=== PATIENT | female | born 1990 | race Hispanic/Latino ===

== ENCOUNTER 2018-12-27 13:54 | Emergency (ER) | payer MEDICAID, OTHER ==
[2018-12-27] MEDS ORDERED: Acetaminophen 500 MG TAB ONE (14:27)
== END 2018-12-27 14:30 | disposition home or self-care (01) ==
LOC: ERS 13:54
DX: O99.613 Diseases of the digestive system complicating pregnancy, third trimester (principal); K02.9 Dental caries, unspecified; Z3A.28 28 weeks gestation of pregnancy
CPT/HCPCS: 99281

== ENCOUNTER 2019-03-10 05:30 | Inpatient (IN) | payer OTHER ==
[2019-03-10] MEDS ORDERED: Butorphanol Tartrate 1 MG/ML VIAL SLOW IVP PRN (06:00)
[2019-03-10] MEDS ORDERED: Lidocaine 1% (PF) 30 ML VIAL SC PRN (06:00)
[2019-03-10] MEDS ORDERED: Docusate 100 MG CAP PO PRN (06:00)
[2019-03-10] MEDS ORDERED: HYDROcodone/Acetaminophen 5/325 mg Tablet PO PRN ×2 (06:00)
[2019-03-10] MEDS ORDERED: Zolpidem Tartrate 5 MG TAB PO PRN (06:00)
[2019-03-10] MEDS ORDERED: Acetaminophen 500 MG TAB PO PRN (06:00)
[2019-03-10] MEDS ORDERED: Carboprost 250 MCG/ML AMP IM PRN (06:00)
[2019-03-10] MEDS ORDERED: Methylergonovine 0.2 MG/ML VIAL IM PRN (06:00)
[2019-03-10] MEDS ORDERED: NS w/ Oxytocin 10 units 500 ML IV SCH (06:00)
[2019-03-10] MEDS ORDERED: hydrALAZINE 20 MG/ML VIAL SLOW IVP PRN (06:00)
[2019-03-10] MEDS ORDERED: Promethazine HCl 25 MG/ML VIAL IM PRN ×2 (06:00→19:35)
[2019-03-10] MEDS ORDERED: Ibuprofen 800 MG TAB PO PRN (06:00)
[2019-03-10] MEDS ORDERED: Ondansetron PF 4 MG/2 ML Vial IVP PRN ×2 (06:00→19:35)
[2019-03-10] MEDS ORDERED: Diphenoxylate HCl/Atropine Tablet PO PRN ×2 (06:00)
[2019-03-10] MEDS ORDERED: NS / Oxytocin 40 units/1000ml 1,000 ML IV PRN (06:00)
[2019-03-10] MEDS ORDERED: Misoprostol 200 MCG TAB PR PRN (06:00)
--- NOTE | 2019-03-10 06:07 | PDOC.LDHP ---
Labor and Delivery H&P Chief complaint: scheduled induction HPI: 29 y/o G5 P 2021 at 30 and0/7 weeks presents for term induction of labor. Current gestational age (weeks): 39 Due date: 03/17/19 Grav: 5 Para: 2 Current complications: other (Obesity) Abnormal US findings: No Current medications: pre- vitamins Previous surgical history: none Social history: none - Physical Exam Vital signs reviewed and normal: yes General: NAD, resting Heart: RRR Lungs: CTAB Abdomen: gravid Extremeties: no edema FHT: category 1 - Assessment L&D Assessment: elective induction at term - Plan Plan: admit to L&D, cervical ripening
[2019-03-10 06:48] LABS: Hemoglobin 10.9 g/dL (12.0-16.0); Mean Corpuscular HGB CONC 33.6 g/dL (32.0-36.0); Mean Corpuscular Hemoglobin 26.1 pg (27.0-31.0); Mean Corpuscular Volume 77.8 fL (78.0-98.0); Platelet Count 246 thou/uL (130-400); RBC Distribution Width 12.5 % (11.5-14.5); Red Blood Cell (RBC) Count 4.18 mill/uL (4.20-5.40)
[2019-03-10 07:04] VITALS: BMI 41.1
[2019-03-10 07:27] LABS: HBSAg Index 0.19 S/CO (0-0.99); Hep B Surf Ag Non-Reactive S/CO (NonReactive)
[2019-03-10 07:31] LABS: Syphilis Antibody Nonreactive (Nonreactive); Syphilis Antibody Index 0.03 S/CO (<1.00 Non-Reactive)
[2019-03-10] MEDS: Misoprostol 100 MCG TAB VAG SCH ×4 (07:35→16:38)
[2019-03-10] MEDS ORDERED: Bupivacaine PF 0.5% 30 ML VIAL ONE (09:38)
[2019-03-10] MEDS ORDERED: Bupivacaine 0.25% HCL 30 ML VIAL ONE (09:38)
[2019-03-10] MEDS: NS w/ Oxytocin 10 units 500 ML IV SCH (10:27)
[2019-03-10] MEDS: Lactated Ringer's 1,000 ML IV SCH ×4 (10:28→19:10)
[2019-03-10] MEDS ORDERED: Benzonatate 100 MG CAP PO SCH (10:30)
[2019-03-10] MEDS ORDERED: Fentanyl 4 mcg/Bup 0.1% Cadd 100 ML ONE (18:52)
[2019-03-10] MEDS ORDERED: diphenhydrAMINE 50 MG/ML VIAL IVP PRN (19:35)
[2019-03-10] MEDS ORDERED: ePHEDrine/0.9% NaCl/PF SYRINGE 50 mg/10 ml SLOW IVP PRN (19:35)
[2019-03-10] MEDS ORDERED: Lactated Ringer's 500 ML IV PRN (19:35)
[2019-03-10] MEDS ORDERED: Acetaminophen 325 MG TAB PO PRN (19:35)
[2019-03-10] MEDS ORDERED: Naloxone HCl 0.4 mg/ml Vial IVP PRN ×2 (19:35)
[2019-03-10] MEDS ORDERED: Communication Order-Pharmacy FS SCH (19:45)
[2019-03-11] MEDS: Fentanyl 4 mcg/Bupivacaine 0.1% Cassette 100 ML EPIDURAL SCH ×3 (01:55→12:44)
[2019-03-11] MEDS ORDERED: Fentanyl 4 mcg/Bup 0.1% Cadd 0 ML ONE (07:14)
[2019-03-11] MEDS ORDERED: Lidocaine 1% (PF) 30 ML VIAL ONE (07:27)
[2019-03-11] MEDS ORDERED: NS / Oxytocin 40 units/1000ml 0 ML ONE (07:27)
[2019-03-11] MEDS ORDERED: FLU VACC QS2019-20(6MOS UP)/PF 60 MCG/0.5 ML SYRINGE IM ONE (09:00)
[2019-03-11] MEDS: Lactated Ringer's 1,000 ML IV SCH ×2 (09:30→14:20)
[2019-03-11] MEDS ORDERED: PROPOFOL 200 MG/20 ML VIAL ONE (10:33)
[2019-03-11] MEDS ORDERED: Ketorolac Tromethamine 30 MG/ML VIAL ONE ×3 (10:33→18:48)
[2019-03-11] MEDS ORDERED: Ondansetron PF 4 MG/2 ML Vial ONE ×3 (10:33→17:47)
[2019-03-11] MEDS ORDERED: Dexamethasone 20 MG/5 ML VIAL ONE (10:33)
[2019-03-11] MEDS ORDERED: ePHEDrine/0.9% NaCl/PF SYRINGE 50 mg/10 ml ONE ×3 (10:33→17:43)
[2019-03-11] MEDS ORDERED: Succinylcholine Chloride 20 MG/ML 10 ml SYRINGE FS ONE ×2 (10:33→15:46)
[2019-03-11] MEDS: Misoprostol 100 MCG TAB VAG SCH ×3 (11:29→14:26)
[2019-03-11] MEDS ORDERED: Fentanyl 4 mcg/Bup 0.1% Cadd 100 ML ONE (12:39)
[2019-03-11] MEDS: NS w/ Oxytocin 10 units 500 ML IV SCH (14:27)
[2019-03-11] MEDS ORDERED: Azithromycin 500 MG in Sodium Chloride 0.9% 250 ML 250 ML IVPB SCH (15:38)
[2019-03-11] MEDS ORDERED: Clindamycin/D5W 900 MG in Premix Bag 1 BAG IVPB SCH (15:38)
[2019-03-11] MEDS ORDERED: Bicitra 30 ML UDCUP PO SCH (15:45)
[2019-03-11] MEDS ORDERED: PROPOFOL 20 ML ONE (15:46)
[2019-03-11] MEDS ORDERED: Oxytocin 10 UNITS/ML VIAL ONE (15:46)
[2019-03-11] MEDS ORDERED: Lidocaine 1% PF 5 ML VIAL ONE (15:48)
[2019-03-11] MEDS ORDERED: Clindamycin/D5W 900 mg/50 ml Premix Bag ONE (15:52)
[2019-03-11] MEDS ORDERED: Azithromycin 500 MG VIAL ONE (15:53)
[2019-03-11] MEDS ORDERED: Fentanyl 250 MCG/5 ML VIAL ONE (17:17)
[2019-03-11] MEDS ORDERED: HYDROmorphone 2 MG/ML VIAL SLOW IVP PRN (17:23)
[2019-03-11] MEDS ORDERED: diphenhydrAMINE 50 MG/ML VIAL IVP PRN (17:23)
[2019-03-11] MEDS ORDERED: Naloxone HCl 0.4 mg/ml Vial IV PRN (17:23)
[2019-03-11] MEDS ORDERED: Meperidine HCl/PF 25 MG/ML VIAL SLOW IVP PRN (17:23)
[2019-03-11] MEDS ORDERED: Ondansetron HCl/PF 4 MG/2 ML Vial IVP PRN (17:23)
[2019-03-11] MEDS ORDERED: fentaNYL Citrate/PF 2,000 MCG in Sodium Chloride 0.9% 60 ML IV PRN (17:23)
[2019-03-11] MEDS ORDERED: Ondansetron PF 4 MG/2 ML Vial IVP PRN (17:23)
[2019-03-11] MEDS ORDERED: L&D-Morphine 4 MG/ML VIAL SLOW IVP PRN (17:23)
[2019-03-11] MEDS ORDERED: diphenhydrAMINE 50 MG/ML VIAL IM PRN (17:23)
[2019-03-11] MEDS ORDERED: Promethazine HCl 25 MG/ML VIAL IM PRN ×2 (17:23→21:06)
[2019-03-11] MEDS ORDERED: Zolpidem Tartrate 5 MG TAB PO PRN ×2 (17:23→21:06)
[2019-03-11] MEDS ORDERED: diphenhydrAMINE 25 MG CAP PO PRN ×2 (17:23→21:06)
[2019-03-11] MEDS ORDERED: Communication Order-Pharmacy FS PRN (17:30)
[2019-03-11] MEDS ORDERED: Ketorolac Tromethamine 30 MG/ML VIAL IVP SCH (17:30)
[2019-03-11] MEDS ORDERED: Dexamethasone 4 mg/ml Vial ONE (17:47)
[2019-03-11] MEDS ORDERED: Adacel (T-DAP) 0.5 ML SYRINGE IM ONE (21:06)
[2019-03-11] MEDS ORDERED: Methylergonovine 0.2 MG/ML VIAL IM PRN (21:06)
[2019-03-11] MEDS ORDERED: Lanolin Ointment 7 GM TUBE TOP PRN (21:06)
[2019-03-11] MEDS ORDERED: NS / Oxytocin 40 units/1000ml 1,000 ML IV SCH (21:06)
[2019-03-11] MEDS ORDERED: Misoprostol 200 MCG TAB PR PRN (21:06)
[2019-03-11] MEDS ORDERED: Measles/Mumps/Rubella 10 MCG/0.5 ML VIAL SC ONE (21:06)
[2019-03-11] MEDS ORDERED: Varicella virus, LIVE 0.5 ML VIAL SC ONE (21:06)
[2019-03-11] MEDS ORDERED: Bisacodyl 10 MG SUPP PR PRN (21:06)
[2019-03-11] MEDS ORDERED: hydrALAZINE 20 MG/ML VIAL SLOW IVP PRN (21:06)
--- NOTE | 2019-03-11 21:34 | OP ---
DATE OF PROCEDURE: 03/11/2019 TIME: 1706 central standard time. PREOPERATIVE DIAGNOSIS: Intrauterine at 39 weeks with a term induction of labor with failure to descend and nonreassuring heart tones. POSTOPERATIVE DIAGNOSIS: Intrauterine at 39 weeks with a term induction of labor with failure to descend and nonreassuring heart tones. PROCEDURE PERFORMED: Primary low-transverse section using Pfannenstiel skin incision. FINDINGS: Viable female weighing 3345 g or 7 pounds 6 ounces with Apgars 8 and 9. QUANTITATIVE BLOOD LOSS: 280 mL. COMPLICATIONS: None. DETAILS OF THE PROCEDURE: The patient was consented and taken back to the operating room where spinal anesthesia was found to be adequate. She was then prepped and draped in the normal sterile fashion. A timeout was performed by the entire operative team. The incision was then marked with a marking pen tested using sharp pickups. An incision was then made with a scalpel. The incision was carried through the adipose tissue down to the underlying rectus fascia using both sharp dissection as well as cautery. Once the fascia was identified, it was incised in the midline and then the fascial incision was carried through in both lateral directions using sharp as well as cautery dissection techniques. Next, the superior aspect of the rectus fascia was grasped with 2 Trina clamps, which was tented up and the rectus muscles were dissected off using blunt dissection as well as cautery dissection. Similarly, the inferior aspect of the fascial incision was grasped with 2 Trina clamps, tented up and the rectus muscles were dissected off bluntly as well as sharply. Next, the rectus muscles were in the midline and the peritoneum identified. The peritoneum was then carefully grasped with 2 hemostats and entered sharply. The peritoneal incision was extended superiorly and inferiorly and bladder blade was placed in the lower abdomen. At this point, the uterus was identified and the bladder flap was then developed using pickups with teeth as well as Metzenbaum scissors in both lateral directions. The bladder flap was then dissected downwards using the ladle car operator's finger as well as Metzenbaum scissors. The bladder blade was replaced. The lower uterine segment was then identified and entered sharply using a clean scalpel. The uterine incision was then dissected downwards until thin layer of muscle remained and this was entered bluntly using a hemostat to avoid any injury to the baby. The uterine incision was then stretched using two fingers in both lateral directions. An amniotomy was performed artificially using a hemostat and the baby was delivered using fundal pressure in a gentle fashion. Once out, the baby's mouth and nose were bulb suctioned, cord clamped and cut, and the baby was handed to waiting attendants. Next, the uterus was exteriorized, cleared of all clots and debris and the uterine incision was repaired with #1 Monocryl in a running locking fashion. A 2nd suture of the same type was used to obtain complete hemostasis at the uterine incision. The bladder flap was reapproximated using 3-0 Monocryl. Next, patient's left and right adnexa were inspected and appeared to be within normal limits. The posterior cul-de-sac was blotted dry and hemostasis assured. One more look at the uterine incision demonstrated hemostasis. Next, the uterus was replaced back within the abdomen. The peritoneum was reapproximated using 2-0 Monocryl without difficulty. The rectus muscles were then allowed to come back together and 0 chromic was used to aid in reapproximation of the muscle as necessary. The rectus fascia was then reapproximated in a running fashion using 0 Vicryl suture. The adipose tissue was then examined and appeared to be well approximated without any obvious separations. Finally, the skin was reapproximated with 3-0 Monocryl on a Kong needle without difficulty and Dermabond adhesive was applied to the skin. Once the glue was dry, the drapes were removed and the patient was transferred to an ambulatory bed where she was taken to recovery awake and in stable condition. Sponge, lap, and needle counts were correct x3. Job ID: [id number]
[2019-03-12] MEDS: Docusate Calcium (SURFAK) 240 MG CAP PO SCH ×3 (00:31→20:39)
[2019-03-12] MEDS: Ibuprofen 800 MG TAB PO SCH ×5 (00:32→20:39)
[2019-03-12] MEDS: Ferrous Sulfate 325 MG TAB PO SCH ×3 (00:32→20:40)
[2019-03-12] MEDS: Misoprostol 100 MCG TAB VAG SCH (00:33)
[2019-03-12] MEDS: Simethicone Chewable 80 MG TAB PO PRN ×3 (04:57→20:40)
[2019-03-12 06:10] LABS: Hemoglobin 6.6 g/dL (12.0-16.0); Mean Corpuscular HGB CONC 33.6 g/dL (32.0-36.0); Mean Corpuscular Hemoglobin 26.4 pg (27.0-31.0); Mean Corpuscular Volume 78.4 fL (78.0-98.0); Platelet Count 198 thou/uL (130-400); RBC Distribution Width 12.5 % (11.5-14.5); Red Blood Cell (RBC) Count 2.48 mill/uL (4.20-5.40); White Blood Cell (WBC) Count 16.7 thou/uL (4.8-10.8)
[2019-03-12] MEDS: Prenatal Vitamin 1 TAB PO SCH (08:17)
[2019-03-12] MEDS: HYDROcodone/Acetaminophen 5/325 mg Tablet PO PRN ×3 (09:39→17:25)
[2019-03-12 15:32] LABS: Hemoglobin 6.2 g/dL (12.0-16.0)
[2019-03-13] MEDS: HYDROcodone/Acetaminophen 5/325 mg Tablet PO PRN ×5 (02:33→21:03)
[2019-03-13] MEDS: Ibuprofen 800 MG TAB PO SCH ×3 (05:03→21:03)
[2019-03-13 06:44] LABS: Hemoglobin 5.4 g/dL (12.0-16.0)
[2019-03-13] MEDS: Ferrous Sulfate 325 MG TAB PO SCH ×2 (08:44→21:03)
[2019-03-13] MEDS: Prenatal Vitamin 1 TAB PO SCH (08:44)
[2019-03-13] MEDS: Docusate Calcium (SURFAK) 240 MG CAP PO SCH ×2 (08:44→21:03)
[2019-03-13] MEDS ORDERED: Sodium Chloride 0.9% 10 ML ONE (08:57)
[2019-03-13] MEDS: Simethicone Chewable 80 MG TAB PO PRN ×3 (09:34→21:03)
--- NOTE | 2019-03-14 00:11 | PDOC.PP ---
Post Progress Note Post Day #: 2 PO intake tolerated: yes Flatus: yes Ambulation: yes Vital Signs (12 hours) Temp Pulse Pulse Resp BP BP 03/13/19 17:20 98.5 F 77 20 100/56 L 03/13/19 14:00 98.3 F 73 20 102/54 L 03/13/19 12:35 98.6 F 74 20 94/55 L 03/13/19 11:50 97.6 F 73 20 101/51 L Weight Weight 218 lb - Physical Examination General: NAD Cardiovascular: no m/r/g, RRR Respiratory: clear to auscultation bilaterally, non-labored breathing Abdominal: + bowel sounds, lochia, no distention Extremities: negative homans (B) Skin: CS incision dry & intact, no rash Neurological: no gross focal deficits Psychiatric: A&Ox3, normal affect (Pt is now s/p 2 units of pRBC per Dr. Raza. She is set to have a repeat CBC in the am (sooner if vital signs or symptoms suggest further severe anemia).) Result Diagrams: 03/13/19 06:09 Additional Labs: Post Labs Blood Type AB POSITIVE 03/10/19 07:18 Hep Bs Antigen Non-Reactive S/CO (NonReactive) 03/10/19 06:34
[2019-03-14] MEDS: HYDROcodone/Acetaminophen 5/325 mg Tablet PO PRN ×3 (02:12→16:57)
[2019-03-14 04:11] LABS: Hemoglobin 7.2 g/dL (12.0-16.0)
[2019-03-14] MEDS: Ibuprofen 800 MG TAB PO SCH ×3 (05:08→20:27)
[2019-03-14] MEDS: Docusate Calcium (SURFAK) 240 MG CAP PO SCH ×2 (08:47→20:28)
[2019-03-14] MEDS: Prenatal Vitamin 1 TAB PO SCH (08:47)
[2019-03-14] MEDS: Ferrous Sulfate 325 MG TAB PO SCH ×2 (08:47→20:28)
[2019-03-14] MEDS: Simethicone Chewable 80 MG TAB PO PRN ×2 (10:34→14:56)
[2019-03-15] MEDS: Ibuprofen 800 MG TAB PO SCH ×2 (05:39→14:10)
[2019-03-15] MEDS: Prenatal Vitamin 1 TAB PO SCH (10:10)
[2019-03-15] MEDS: Ferrous Sulfate 325 MG TAB PO SCH (10:10)
[2019-03-15] MEDS: HYDROcodone/Acetaminophen 5/325 mg Tablet PO PRN (10:11)
[2019-03-15] MEDS: Docusate Calcium (SURFAK) 240 MG CAP PO SCH (10:11)
[2019-03-15 12:07] VITALS: BP 113/55; TEMP 98.3
[2019-03-15] MEDS ORDERED: FLU VACC QS2019-20(6MOS UP)/PF 60 MCG/0.5 ML SYRINGE IM ONE (12:52)
--- NOTE | 2019-03-16 04:11 | PQF ---
Michael Nelson DAVID MD [id number] CLINICAL DOCUMENTATION CLARIFICATION FORM: POST DISCHARGE Addendum to original discharge summary date: ____ Late entry note date: __ DATE:03/16/19 ATTN: Dr Oksana De Santiago Please exercise your independent, professional judgment in responding to the clarification form. Clinical indicators are provided on the bottom of this form for your review Please check appropriate box(s): [ ] Acute blood loss anemia [ ] Post-op anemia related to acute blood loss [ ] Chronic Anemia of [ ] Other diagnosis [ ] Unable to determine In addition, please specify: Present on Admission (POA): [ ] Yes [ ] No [ ] Unable to determine For continuity of documentation, please document condition throughout progress notes and discharge summary. Thank You. CLINICAL INDICATORS - SIGNS / SYMPTOMS / LABS Laboratory Hematology 03/10 RBC 4.18, Hgb 10.9, Hct 32.5 Laboratory Hematology 03/12 RBC 2.48, Hgb 6.6, Hct 19.5 Laboratory Hematology 03/12 Hgb 6.2 Hct 18.4 Laboratory Hematology 03/12 Hgb 5.4 Hct 16.1 Operative report 03/11 Estimated blood loss 280 ml RISK FACTORS Operative report 03/11 39 weeks Intrauterine Operative report 03/11 s/p Low CS TREATMENTS: Blood bank 03/13 Transfused RBC MAR 03/13 Ferrous Sulfate (This form is maintained as a part of the permanent medical record) 2014 [employer] All Rights Reserved Terri [email or web address] [not provided] MTDD
--- NOTE | 2019-03-16 09:56 | OP ---
DATE OF PROCEDURE: 03/11/2019 TIME: 1706 central standard time. PREOPERATIVE DIAGNOSIS: Intrauterine at 39 weeks with term induction of labor and morbid obesity. POSTOPERATIVE DIAGNOSIS: Intrauterine at 39 weeks with term induction of labor and morbid obesity. PROCEDURE PERFORMED: Primary section. FINDINGS: Viable female infant weighing 7 pounds 6 ounces, which is 3345 g, Apgars of 8 and 9. In this case, quantitative blood loss reported 280 mL. My impression is the surgeon was closer to 700 mL. COMPLICATIONS: Intraoperatively none. DESCRIPTION OF PROCEDURE: The patient was consented and taken back to the operating room where spinal anesthesia was found to be adequate. She was then prepped and draped in the normal sterile fashion. A timeout was performed by the entire operative team. The incision was then marked with a marking pen tested using sharp pickups. An incision was then made with a scalpel. The incision was carried through the adipose tissue down to the underlying rectus fascia using both sharp dissection as well as cautery. Once the fascia was identified, it was incised in the midline and then the fascial incision was carried through in both lateral directions using sharp as well as cautery dissection techniques. Next, the superior aspect of the rectus fascia was grasped with 2 Trina clamps, which was tented up and the rectus muscles were dissected off using blunt dissection as well as cautery dissection. Similarly, the inferior aspect of the fascial incision was grasped with 2 Trina clamps, tented up and the rectus muscles were dissected off bluntly as well as sharply. Next, the rectus muscles were in the midline and the peritoneum identified. The peritoneum was then carefully grasped with 2 hemostats and entered sharply. The peritoneal incision was extended superiorly and inferiorly and bladder blade was placed in the lower abdomen. At this point, the uterus was identified and the bladder flap was then developed using pickups with teeth as well as Metzenbaum scissors in both lateral directions. The bladder flap was then dissected downwards using the armored machine operator's finger as well as Metzenbaum scissors. The bladder blade was replaced. The lower uterine segment was then identified and entered sharply using a clean scalpel. The uterine incision was then dissected downwards until thin layer of muscle remained and this was entered bluntly using a hemostat to avoid any injury to the baby. The uterine incision was then stretched using two fingers in both lateral directions. An amniotomy was performed artificially using a hemostat and the baby was delivered using fundal pressure in a gentle fashion. Once out, the baby's mouth and nose were bulb suctioned, cord clamped and cut, and the baby was handed to waiting attendants. Next, the uterus was exteriorized, cleared of all clots and debris and the uterine incision was repaired with #1 Monocryl in a running locking fashion. A 2nd suture of the same type was used to obtain complete hemostasis at the uterine incision. The bladder flap was reapproximated using 3-0 Monocryl. Next, patient's left and right adnexa were inspected and appeared to be within normal limits. The posterior cul-de-sac was blotted dry and hemostasis assured. One more look at the uterine incision demonstrated hemostasis. Next, the uterus was replaced back within the abdomen. The peritoneum was reapproximated using 2-0 Monocryl without difficulty. The rectus muscles were then allowed to come back together and 0 chromic was used to aid in reapproximation of the muscle as necessary. The rectus fascia was then reapproximated in a running fashion using 0 Vicryl suture. The adipose tissue was then examined and appeared to be well approximated without any obvious separations. Finally, the skin was reapproximated with 3-0 Monocryl on a Kong needle without difficulty and Dermabond adhesive was applied to the skin. Once the glue was dry, the drapes were removed and the patient was transferred to an ambulatory bed where she was taken to recovery awake and in stable condition. Sponge, lap, and needle counts were correct x3. Job ID: [id number]
[2019-03-16] MEDS ORDERED: FLU VACC QS2019-20(6MOS UP)/PF 60 MCG/0.5 ML SYRINGE IM ONE (12:45)
== END 2019-03-15 15:10 | disposition home or self-care (01) | DRG 788 ==
LOC: L&D 05:36 → 3SW 03-11 21:46
PROVIDERS: ADMIT Obstetrics & Gynecology; ATTEND Obstetrics & Gynecology
PROC: 3E0P7VZ Introduction of Hormone into Female Reproductive, Via Natural or Artificial Opening (ICD-10-PCS; 2019-03-10)
PROC: 10D00Z1 Extraction of Products of Conception, Low, Open Approach (ICD-10-PCS; principal; 2019-03-11)
PROC: 3E0P05Z Introduction of Adhesion Barrier into Female Reproductive, Open Approach (ICD-10-PCS; 2019-03-11)
PROC: 30233N1 Transfusion of Nonautologous Red Blood Cells into Peripheral Vein, Percutaneous Approach (ICD-10-PCS; 2019-03-13)
PROC: 3E0234Z Introduction of Serum, Toxoid and Vaccine into Muscle, Percutaneous Approach (ICD-10-PCS; 2019-03-15)
PROC: 3E02340 Introduction of Influenza Vaccine into Muscle, Percutaneous Approach (ICD-10-PCS; 2019-03-15)
DX: O76 Abnormality in fetal heart rate and rhythm complicating labor and delivery (principal); Z3A.39 39 weeks gestation of pregnancy; Z37.0 Single live birth; O32.4XX0 Maternal care for high head at term, not applicable or unspecified; O99.213 Obesity complicating pregnancy, third trimester; E66.9 Obesity, unspecified; Z23 Encounter for immunization
CPT/HCPCS: 36415; 36430; 51702; 85014; 85018; 85027; 86780; 86850; 86900; 86901; 87340; 90471; 90686; 90715; G0008; J0456; J1100; J1885; J2001; J2405; J2590; J2704; J3010; J3490; P9016; Q0163; S0020

== ENCOUNTER 2019-03-29 11:10 | Inpatient (IN) | payer OTHER ==
[2019-03-29 12:18] LABS: #Eosinphils 0.1 thou/uL (0.0-0.7); #Lymphocytes 1.6 thou/uL (1.20-3.40); #Monocytes 0.3 thou/uL (0.11-0.59); %Basophils 0.5 % (0.0-1.0); %Eosinophils 1.5 % (0.0-10.0); %Lymphocytes 19.8 % (21.0-51.0); %Monocytes 3.9 % (0.0-10.0); %Neutrophils 74.3 % (42.0-75.0); Hemoglobin 7.9 g/dL (12.0-16.0); Mean Corpuscular HGB CONC 30.9 g/dL (32.0-36.0); Mean Corpuscular Hemoglobin 26.2 pg (27.0-31.0); Mean Corpuscular Volume 84.8 fL (78.0-98.0); Mean Platelet Volume 9.5 fL (7.4-10.4); Platelet Count 311 thou/uL (130-400); RBC Distribution Width 14.7 % (11.5-14.5); Red Blood Cell (RBC) Count 3.03 mill/uL (4.20-5.40)
[2019-03-29 12:21] LABS: INR-International Normal Ratio 1.2; PTT 30.2 SEC (22.9-36.1); Prothrombin Time 14.7 SEC (12.0-14.7)
[2019-03-29] MEDS ORDERED: Tranexamic Acid 1,000 MG/10 ML VIAL ONE (12:26)
[2019-03-29 12:44] LABS: ALT (SGPT) 10 U/L (8-55); AST (SGOT) 15 U/L (5-34); Albumin 3.3 g/dL (3.5-5.0); Alkaline Phosphatase 102 U/L (40-110); Anion Gap 12 mmol/L (10-20); BUN (Urea Nitrogen) 12 mg/dL (7.0-18.7); Bilirubin, Total 0.9 mg/dL (0.2-1.2); Calc. Creatinine Clearance 0 mL/min (70-130); Calcium 7.7 mg/dL (7.8-10.44); Carbon Dioxide 21 mmol/L (22-29); Chloride 111 mmol/L (98-107); Estimated GFR-MDRD 84; Globulin 2.7 g/dL (2.4-3.5); Glucose 157 mg/dL (70-105); Potassium 3.8 mmol/L (3.5-5.1); Sodium 140 mmol/L (136-145)
--- NOTE | 2019-03-29 12:48 | ULT ---
EXAM: Pelvic ultrasound HISTORY: Vaginal bleeding COMPARISON: None TECHNIQUE: Multiple grayscale and color Doppler images were obtained in a transabdominal pelvic ultra sound. Spectral analysis of the Doppler waveforms of the ovaries were performed. FINDINGS: CERVIX: No evidence of nabothian cysts. UTERUS: Normal in size without focal abnormality. ENDOMETRIAL STRIPE: 15 mm. No free fluid is seen in the pelvis. RIGHT OVARY: There is a large cyst measuring 6.9 cm in size appearing to emanate from the right ovary LEFT OVARY: Not visualized. IMPRESSION: Right ovarian cyst/follicle
--- NOTE | 2019-03-29 13:32 | CT ---
CT Abdomen Pelvis W Con: 03/29/2019 11:51 AM CLINICAL INFORMATION: Hypotensive and tail. Recent delivery with bleeding COMPARISON: None. TECHNIQUE: Multiple contiguous axial images were obtained and a CT of the abdomen and pelvis with IV contrast. C oronal and sagittal reformats were performed. FINDINGS: Lower Chest: within normal limits. Abdomen: Liver: within normal limits. Bile Ducts: Normal caliber. Gallbladder: No calcified gallstones. Normal caliber wall. Pancreas: within normal limits. Spleen: within normal limits. Adrenals: within normal limits. Kidneys: within normal limits. Pelvis: Reproductive Organs: Uterus is still mildly enlarged. Posterior the uterus, there is a high density f luid collection measuring 12.6 x 5.0 x 6.9 cm in size. No air is seen within this high density fluid collection. Just above this fluid collection, there is a heterogeneous soft tissue density stru cture measuring 3.3 cm in size which may represent an ovary. A small amount of fluid and air is seen in the vagina. Ureters: within normal limits. Bladder: within normal limits. Peritoneum: No ascites or free air, no fluid collection. Bowel: Normal caliber. Normal appendix. Mesentery and Retroperitoneum: No enlarged mesenteric or retroperitoneal lymph nodes. Vessels: Normal. Abdominal Wall: Stranding changes in the lower abdominal wall from recent section. Bones: Within normal limits IMPRESSION: High density fluid collection posterior uterus. This could represent a contained hematoma. A hemorrha gic cyst emanating from an ovary is also a possibility.
[2019-03-29] MEDS ORDERED: Ondansetron PF 4 MG/2 ML Vial IVP PRN (13:57)
[2019-03-29] MEDS ORDERED: Acetaminophen 325 MG TAB PO PRN (13:57)
[2019-03-29] MEDS ORDERED: Ondansetron ODT 4 MG TAB PO PRN (13:57)
[2019-03-29] MEDS ORDERED: Iopamidol-370 76% 500 ML 1 ML ONE (15:16)
[2019-03-29 15:27] LABS: Lactic Acid 1.1 mmol/L (0.5-2.2)
[2019-03-29 16:23] LABS: Bacteria/HPF None Seen HPF (None Seen); Bilirubin Negative (Negative); Blood, Urine 3+ (Negative); Clarity Turbid (Clear); Glucose, Urine (Dipstick) Normal (Negative); Leukocyte 250 Leu/uL (Negative); Nitrite Negative (Negative); Protein, Urine (Dipstick) 70 mg/dL (Neg-Trace); RBC/HPF Greater than 50 HPF (0-3); Squamous Epithelial None Seen HPF (0-3); Urobilinogen Normal mg/dL (Less than 2)
[2019-03-29 20:02] LABS: #Lymphocytes 1.4 thou/uL (1.20-3.40); #Monocytes 0.2 thou/uL (0.11-0.59); #Neutrophils 8.9 thou/uL (1.40-6.50); %Basophils 0.3 % (0.0-1.0); %Eosinophils 0.1 % (0.0-10.0); %Lymphocytes 13.4 % (21.0-51.0); %Monocytes 2.2 % (0.0-10.0); %Neutrophils 83.9 % (42.0-75.0); Mean Corpuscular HGB CONC 32.8 g/dL (32.0-36.0); Mean Corpuscular Hemoglobin 27.7 pg (27.0-31.0); Mean Corpuscular Volume 84.5 fL (78.0-98.0); Mean Platelet Volume 9.1 fL (7.4-10.4); Platelet Count 275 thou/uL (130-400); RBC Distribution Width 14.8 % (11.5-14.5); White Blood Cell (WBC) Count 10.6 thou/uL (4.8-10.8)
--- NOTE | 2019-03-29 20:03 | HP ---
CHIEF COMPLAINT: Symptomatic anemia. HISTORY OF PRESENT ILLNESS: This is a 29-year-old G5, P3-0-2-3, 18 days status post primary low-transverse by Dr. Gandhi on 03/11/2019. The surgery was done for non-reassuring heart tones and failed induction of labor. Per operative report, the section was uncomplicated with QBL of 280 mL, but a reported EBL by Dr. Gandhi was 700 to 800 mL. Upon discussing the surgery with Dr. Gandhi, he reported an extension of the hysterotomy into the right round ligament that appeared hemostatic at the time of surgery. During that stay, her hemoglobin dropped from 10.9 down to 5.4, and required a blood transfusion prior to discharge. The patient reports that she has had vaginal bleeding since then, but it increased in the last 2 to 3 days. Upon presentation, she appeared to be very pale and hypotensive, and was transfused with 2 units of packed red blood cells and reportedly felt much better. She was also given tranexamic acid with improvement in her vaginal bleeding. PAST MEDICAL HISTORY: Morbid obesity. PAST SURGICAL HISTORY: None. PRINTING SPECIALIST HISTORY: Two prior vaginal deliveries with one . SOCIAL HISTORY: Negative for tobacco, alcohol, or drug abuse. FAMILY HISTORY: Noncontributory. PHYSICAL EXAMINATION: VITAL SIGNS: Afebrile. Blood pressure prior to transfusion, 80s over 50s, following transfusion one 100s over 70s, pulse in the 70s. GENERAL: Awake, alert, no acute distress. CHEST: Non labored ABDOMEN: soft, tender to palpation of right lower quadrant. No guarding or rebound. LABORATORY DATA: Hemoglobin 7.9, hematocrit 25.7, platelets 311,000, and coagulations normal. Chemistry, lactic acid 2.7, repeat 1.1, otherwise unremarkable. IMAGING: Pelvic CT revealed a deviated uterus with no retained products noted. There is a high density fluid collection posterior to the uterus. This could represent a contained hematoma versus a cyst. ASSESSMENT AND PLAN: A 29-year-old G5, P3-0-2-3, 18 days status post primary low-transverse with vaginal bleeding. The vaginal bleeding has improved after tranexamic acid was given. She is now status post 2 units transfusion of packed red blood cells and is clinically much improved. The findings on CT scan were discussed with Dr. Close in Radiology, who feels that this may represent a retroperitoneal hematoma and there was an area of blushing visible indicating possible active extravasation at this time. She will be admitted for observation of her clinical status. I will repeat an H and H tonight and again in the morning. If there is any indication that there is a significant bleed internally, we will consult IR for angioembolization. This was discussed with Dr. Gandhi, who will see the patient in the morning. Job ID: [id number] MTDD
[2019-03-30 06:31] LABS: #Basophils 0.1 thou/uL (0.0-0.2); #Eosinphils 0.1 thou/uL (0.0-0.7); #Lymphocytes 2.1 thou/uL (1.20-3.40); #Monocytes 0.4 thou/uL (0.11-0.59); #Neutrophils 5.4 thou/uL (1.40-6.50); %Basophils 0.7 % (0.0-1.0); %Eosinophils 1.2 % (0.0-10.0); %Lymphocytes 26.1 % (21.0-51.0); %Monocytes 5.2 % (0.0-10.0); %Neutrophils 66.7 % (42.0-75.0); Hemoglobin 8.8 g/dL (12.0-16.0); Mean Corpuscular HGB CONC 33.9 g/dL (32.0-36.0); Mean Corpuscular Hemoglobin 28.5 pg (27.0-31.0); Mean Platelet Volume 9.3 fL (7.4-10.4); Platelet Count 237 thou/uL (130-400); Red Blood Cell (RBC) Count 3.09 mill/uL (4.20-5.40); White Blood Cell (WBC) Count 8.1 thou/uL (4.8-10.8)
[2019-03-30] MEDS: Sodium Chloride 0.9% 1,000 ML IV SCH (07:40)
[2019-03-30 09:47] VITALS: BMI 34.0
--- NOTE | 2019-03-30 13:26 | CT ---
CT ABDOMEN AND PELVIS WITH IV CONTRAST 03/30/2019 CLINICAL INFORMATION: Reevaluation of right pelvic fluid collection COMPARISON: 03/29/2019 Technique: Multiple contiguous axial CT images are obtained through the abdomen and pelvis with IV contrast. Cor onal reformatted images are provided. FINDINGS: Lower Chest: within normal limits. Vessels: Abdominal aorta is normal in caliber without evidence of an aortic dissection. Abdomen: Portal vein:Patent Gallbladder: Within normal limits for CT imaging. Liver: within normal limits. Spleen: within normal limits. Pancreas: within normal limits. Adrenals: within normal limits. Kidneys: within normal limits. Bowel: Normal caliber. Appendix: The appendix is visualized and normal in caliber. Peritoneum: No ascites or free air; no fluid collection. Mesentery and Retroperitoneum: No enlarged mesenteric or retroperitoneal lymph nodes. Abdominal Wall: Mild stranding seen in the anterior wall of the lower abdomen mild skin thickening. F indings are likely related to recent postsurgical changes secondary to section on 03/11/2019. Small fat-containing umbilical hernia is again seen. Pelvis: Reproductive Organs: There is mild heterogeneity seen in the region of the endometrial canal which ma y be related to small amount of hemorrhage. Retained products of conception or endometritis cannot be excluded based on CT imaging. Clinical correlation is recommended. Pelvis again noted is the heterogeneous collection which demonstrates predominantly increased density seen within the pelvis. This is probably retroperitoneal in location. This collection is not significantly changed in size and measures 10 cm craniocaudal x7.5 cm transverse x6.6 cm AP with prio r measurement of 10.7 cm craniocaudal x7.6 cm transverse x6.4 cm AP. Findings are again thought to represent hematoma. The increased density focus seen just anterior to the lower portion of this colle ction is less perceptible on this examination with only a subtle focus of enhancement seen in this region. Just superior to this presumed hematoma, there is a slightly heterogeneous structure which ma y represent the patient's right ovary displaced superiorly. This collection extends from the mid pelvis to the L4-5 level. There is minimal stranding seen in the right paracolic gutter similar to pr ior study. Bladder: Decompressed. Bones: within normal limits. IMPRESSION: 1. High density fluid collection most suggestive of a hematoma posterior to the uterus is again seen and overall unchanged in size and has a similar appearance to the prior study. Previously noted area of focal enhancement just anterior to the inferior aspect of this collection which has the appea benito of a focus of active extravasation on the prior study is not well visualized on this exam. There is a subtle area of focal enhancement seen in this region, but there are no new areas of hemorr dustin, and there has been no interval enlargement in the collection within the pelvis. 2. Heterogeneous material within the endometrial canal likely related to small amount of hemorrhage. Clinical correlation is recommended as other etiologies cannot be entirely excluded based on this exam.
[2019-03-30 14:33] LABS: #Basophils 0.1 thou/uL (0.0-0.2); #Eosinphils 0.1 thou/uL (0.0-0.7); #Lymphocytes 1.8 thou/uL (1.20-3.40); #Monocytes 0.4 thou/uL (0.11-0.59); #Neutrophils 4.1 thou/uL (1.40-6.50); %Eosinophils 1.7 % (0.0-10.0); %Lymphocytes 28.4 % (21.0-51.0); %Monocytes 5.6 % (0.0-10.0); %Neutrophils 63.3 % (42.0-75.0); Hemoglobin 8.9 g/dL (12.0-16.0); Mean Corpuscular HGB CONC 32.9 g/dL (32.0-36.0); Mean Corpuscular Hemoglobin 27.4 pg (27.0-31.0); Mean Corpuscular Volume 83.2 fL (78.0-98.0); Mean Platelet Volume 9.2 fL (7.4-10.4); Platelet Count 234 thou/uL (130-400); Red Blood Cell (RBC) Count 3.26 mill/uL (4.20-5.40); White Blood Cell (WBC) Count 6.4 thou/uL (4.8-10.8)
[2019-03-30] MEDS ORDERED: Iopamidol 370 76% 100 ML VIAL ONE (15:45)
--- NOTE | 2019-03-30 18:43 | PDOC.PP ---
Post Progress Note Post Day #: 19 PO intake tolerated: yes Flatus: yes Ambulation: yes Vital Signs (12 hours) Temp Pulse Resp BP Pulse Ox 03/30/19 17:38 99.1 F 81 20 102/57 L 98 03/30/19 12:00 98.3 F 75 20 105/58 L 03/30/19 08:00 98.2 F 71 20 93/51 L 99 Weight Admit Weight 180 lb Weight 180 lb - Physical Examination Cardiovascular: no m/r/g, RRR Respiratory: clear to auscultation bilaterally, non-labored breathing Abdominal: + bowel sounds, lochia Extremities: negative homans (B) Skin: CS incision dry & intact, no rash Neurological: no gross focal deficits Psychiatric: A&Ox3, normal affect (Patient is now s/p 2nd CT-Scan of abdomen/ pelvis with stable right fluid collection, thought to represent a non-enlarging , stable hematoma of unknown duration. The oirigin of the hematoma is likely from uterine closure/right uterine ligament which had a small repaired extension during surgery, but with minimal bleeding intra-operatively. Vaginal bleeding, which was very heavy yesterday, is now back no normal levels S/P TXA. Hb/Hct is somewhat difficult to interpert s/p 2u pRBCs, but the last two checks today were stable with no further drop noted. We will keep patient over night, and re-check Hb/Hct again in am. If stable, DC home is planned.) Result Diagrams: 03/30/19 14:23 03/29/19 12:04 Additional Labs: Post Labs Blood Type AB POSITIVE 03/29/19 12:05
--- NOTE | 2019-03-30 18:47 | PDOC.PP ---
Post Progress Note Post Day #: 18 PO intake tolerated: yes Flatus: yes Ambulation: yes Vital Signs (12 hours) Temp Pulse Resp BP Pulse Ox 03/30/19 17:38 99.1 F 81 20 102/57 L 98 03/30/19 12:00 98.3 F 75 20 105/58 L 03/30/19 08:00 98.2 F 71 20 93/51 L 99 Weight Admit Weight 180 lb Weight 180 lb - Physical Examination General: NAD Cardiovascular: no m/r/g, RRR Respiratory: non-labored breathing Abdominal: + bowel sounds, lochia, no distention Skin: CS incision dry & intact, no rash Neurological: no gross focal deficits Psychiatric: A&Ox3, normal affect (Patient is s/p CT-Scan of abdomen/pelvis with right fluid collection, thought to represent a hematoma of unknown duration. The oirigin of the hematoma is likely from uterine closure/right uterine ligament which had a small repaired extension during surgery, but with minimal bleeding intra-operatively. Heavy vaginal bleeding earlier today is improving s/p TXA. Pt is receiving 2u pRBCs, and serial blood counts ordered. Possible re-imaging tomorrow.) Result Diagrams: 03/30/19 14:23 03/29/19 12:04 Additional Labs: Post Labs Blood Type AB POSITIVE 03/29/19 12:05
[2019-03-31 08:51] LABS: #Eosinphils 0.1 thou/uL (0.0-0.7); #Lymphocytes 1.8 thou/uL (1.20-3.40); #Monocytes 0.2 thou/uL (0.11-0.59); #Neutrophils 4.5 thou/uL (1.40-6.50); %Basophils 0.5 % (0.0-1.0); %Lymphocytes 26.5 % (21.0-51.0); %Monocytes 3.5 % (0.0-10.0); %Neutrophils 67.6 % (42.0-75.0); Hemoglobin 8.6 g/dL (12.0-16.0); Mean Corpuscular HGB CONC 31.1 g/dL (32.0-36.0); Mean Corpuscular Hemoglobin 25.6 pg (27.0-31.0); Mean Corpuscular Volume 82.3 fL (78.0-98.0); Mean Platelet Volume 10.6 fL (7.4-10.4); Platelet Count 198 thou/uL (130-400); Red Blood Cell (RBC) Count 3.35 mill/uL (4.20-5.40); White Blood Cell (WBC) Count 6.6 thou/uL (4.8-10.8)
[2019-03-31] MEDS ORDERED: Acetaminophen 500 MG TAB PO PRN (10:38)
[2019-03-31] MEDS ORDERED: diphenhydrAMINE 25 MG CAP PO PRN (10:39)
[2019-03-31] MEDS ORDERED: Sodium Chloride 0.9% 10 ML ONE (11:25)
[2019-03-31 17:38] VITALS: BP 92/55; TEMP 99.1
--- NOTE | 2019-03-31 18:12 | PDOC.PP ---
Post Progress Note Post Day #: 20 PO intake tolerated: yes Flatus: yes Ambulation: yes Vital Signs (12 hours) Temp Pulse Pulse Resp BP BP Pulse Ox 03/31/19 17:20 99.1 F 68 12 92/55 L 97 03/31/19 14:35 98.4 F 71 16 101/59 L 03/31/19 12:20 98.0 F 62 20 101/63 03/31/19 12:00 98.2 F 67 20 97/66 03/31/19 11:47 98.7 F 70 20 97/66 03/31/19 08:18 98.5 F 63 20 85/50 L 94 L 03/31/19 06:10 98.8 F 65 16 91/49 L Weight Admit Weight 180 lb Weight 180 lb - Physical Examination General: NAD Cardiovascular: no m/r/g, RRR Respiratory: clear to auscultation bilaterally Abdominal: + bowel sounds, no distention Extremities: negative homans (B) Skin: CS incision dry & intact Neurological: no gross focal deficits Psychiatric: A&Ox3, normal affect (DC Home now after 3rd unit pRBC. Lochia scant now. One blood culture positive - npot sure of any real significance given lack of fever, but will treat empirically with 1 week of cephalosporins.) Result Diagrams: 03/31/19 08:19 03/29/19 12:04 Additional Labs: Post Labs Blood Type AB POSITIVE 03/29/19 12:05
--- NOTE | 2019-04-01 04:50 | PQF ---
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 Clinical indicators are provided on the bottom of this form for your review Please check appropriate box(s): [ X ] Acute blood loss anemia [ ] Post-op anemia related to acute blood loss [X ] Other diagnosis please specify ___Abnormal Uterine Bleeding [ ] Unable to determine In addition, please specify: Present on Admission (POA): [ ] Yes [ ] No [ ] Unable to determine For continuity of documentation, please document condition throughout progress notes and discharge summary. Thank You. CLINICAL INDICATORS - SIGNS / SYMPTOMS / LABS H and P pg.1- symptomatic anemia H and P pg.1- she appeared to be very pale and hypotensive H and P pg.1- reports vaginal bleeding H and P pg.1- laboratory data: hemoglobin 7.9, hematocrit 25.7 Post PN pg.1- heavy vaginal bleeding today is improving s/p TXA RISK FACTORS status post primary low transverse - H and P pg.2 Vaginal bleeding- H and P pg.2 TREATMENTS: Blood transfusion H and H monitoring- Laboratory Abdomen/Pelvis CT 03/29 Pelvic/Transvag US 03/29 IV fluids- MAR (This form is maintained as a part of the permanent medical record) 2014 [employer]. All Rights Reserved [email or web address] [not provided] MTDD
== END 2019-03-31 19:39 | disposition home or self-care (01) | DRG 812 ==
LOC: ERS 11:10 → 3SW 13:57
PROVIDERS: ADMIT Obstetrics & Gynecology; ATTEND Obstetrics & Gynecology
PROC: 30233N1 Transfusion of Nonautologous Red Blood Cells into Peripheral Vein, Percutaneous Approach (ICD-10-PCS; principal; 2019-03-29)
DX: D62 Acute posthemorrhagic anemia (principal); O72.2 Delayed and secondary postpartum hemorrhage; O90.2 Hematoma of obstetric wound; O90.81 Anemia of the puerperium; O99.215 Obesity complicating the puerperium; E66.01 Morbid (severe) obesity due to excess calories; Z88.0 Allergy status to penicillin; D64.9 Anemia, unspecified
CPT/HCPCS: 36415; 36416; 36430; 74177; 76856; 80053; 81003; 81015; 83605; 85025; 85610; 85730; 86850; 86900; 86901; 87040; 87149; 96361; 96374; P9016; Q0163; Q9967

== ENCOUNTER 2019-04-02 04:44 | Emergency (ER) | payer OTHER ==
[2019-04-02] MEDS ORDERED: Ondansetron PF 4 MG/2 ML Vial ONE (05:02)
[2019-04-02] MEDS ORDERED: Morphine 4 MG/ML VIAL ONE (05:02)
[2019-04-02 05:42] LABS: #Basophils 0.1 thou/uL (0.0-0.2); #Eosinphils 0.1 thou/uL (0.0-0.7); #Lymphocytes 1.6 thou/uL (1.20-3.40); #Monocytes 0.5 thou/uL (0.11-0.59); #Neutrophils 7.1 thou/uL (1.40-6.50); %Basophils 0.7 % (0.0-1.0); %Eosinophils 1.4 % (0.0-10.0); %Lymphocytes 17.1 % (21.0-51.0); %Monocytes 5.4 % (0.0-10.0); %Neutrophils 75.4 % (42.0-75.0); Hemoglobin 10.2 g/dL (12.0-16.0); Mean Corpuscular HGB CONC 32.9 g/dL (32.0-36.0); Mean Corpuscular Hemoglobin 27.8 pg (27.0-31.0); Mean Corpuscular Volume 84.5 fL (78.0-98.0); Platelet Count 210 thou/uL (130-400); RBC Distribution Width 15.4 % (11.5-14.5); Red Blood Cell (RBC) Count 3.67 mill/uL (4.20-5.40); White Blood Cell (WBC) Count 9.4 thou/uL (4.8-10.8)
[2019-04-02 06:18] LABS: AST (SGOT) 70 U/L (5-34); Albumin 3.6 g/dL (3.5-5.0); Alkaline Phosphatase 130 U/L (40-110); Anion Gap 13 mmol/L (10-20); BUN (Urea Nitrogen) 12 mg/dL (7.0-18.7); Calc. Creatinine Clearance 0 mL/min (70-130); Calcium 8.3 mg/dL (7.8-10.44); Carbon Dioxide 25 mmol/L (22-29); Chloride 109 mmol/L (98-107); Estimated GFR-MDRD 90; Glucose 119 mg/dL (70-105); Lipase 22 U/L (8-78); Potassium 3.5 mmol/L (3.5-5.1); Protein, Total 6.6 g/dL (6.0-8.3); Sodium 143 mmol/L (136-145)
[2019-04-02 06:31] LABS: ALT (SGPT) 32 U/L (8-55)
[2019-04-02 07:14] LABS: Bilirubin Negative (Negative); Blood, Urine 3+ (Negative); Clarity Clear (Clear); Glucose, Urine (Dipstick) Normal (Negative); Leukocyte 500 Leu/uL (Negative); Nitrite Negative (Negative); Protein, Urine (Dipstick) Negative (Neg-Trace); Squamous Epithelial None Seen HPF (0-3)
[2019-04-02 07:15] LABS: Bacteria/HPF 1+ HPF (None Seen)
--- NOTE | 2019-04-02 08:36 | CT ---
CT OF THE ABDOMEN AND PELVIS WITH CONTRAST: COMPARISON: 03/30/2019. HISTORY: Back pain that radiates to abdomen that started around 2 this morning. This is associated with nause a. TECHNIQUE: Multiple contiguous axial images were obtained in a CT of the abdomen and pelvis with contrast. Sagi ttal and coronal reformats were performed. FINDINGS: The liver, gallbladder, kidneys, adrenal glands, spleen, and pancreas are unremarkable. A high-density cystic mass is seen posterior to the uterus in the lower pelvis. This may be associat ed with the cervix and has not significantly changed compared to the exam from 3 days ago. A mild am ount of stranding change is seen just anterior to the uterus. No free air is seen in the abdomen or pelvis. The large and small bowel are unremarkable. The appendix is normal. No abdominal or pelvic lymphade nopathy are seen. The visualized inferior thorax and abdominal wall soft tissues are unremarkable. The bones are unrem arkable. IMPRESSION: Stable high-density fluid collection likely represents blood. This could be within nabothian cyst or within the cervix. A gynecologic consultation is recommended. POS: [facility]
[2019-04-02] MEDS ORDERED: Iopamidol-370 76% 500 ML 1 ML ONE (11:01)
== END 2019-04-02 08:22 | disposition home or self-care (01) ==
LOC: ERS 04:44
DX: O90.89 Other complications of the puerperium, not elsewhere classified (principal); R10.9 Unspecified abdominal pain
CPT/HCPCS: 74177; 80053; 81003; 81015; 83690; 85025; 96374; 96375; J2270; J2405; Q9967

== ENCOUNTER 2019-04-03 23:35 | Emergency (ER) | payer OTHER ==
[2019-04-04 00:15] LABS: #Basophils 0.1 thou/uL (0.0-0.2); #Eosinphils 0.2 thou/uL (0.0-0.7); #Lymphocytes 1.8 thou/uL (1.20-3.40); #Monocytes 0.5 thou/uL (0.11-0.59); #Neutrophils 6.2 thou/uL (1.40-6.50); %Basophils 0.7 % (0.0-1.0); %Eosinophils 2.1 % (0.0-10.0); %Lymphocytes 20.2 % (21.0-51.0); %Monocytes 5.3 % (0.0-10.0); %Neutrophils 71.7 % (42.0-75.0); Hemoglobin 9.5 g/dL (12.0-16.0); Mean Corpuscular HGB CONC 32.8 g/dL (32.0-36.0); Mean Corpuscular Hemoglobin 28.3 pg (27.0-31.0); Mean Corpuscular Volume 86.4 fL (78.0-98.0); Mean Platelet Volume 9.6 fL (7.4-10.4); Platelet Count 278 thou/uL (130-400); RBC Distribution Width 15.8 % (11.5-14.5); Red Blood Cell (RBC) Count 3.34 mill/uL (4.20-5.40); White Blood Cell (WBC) Count 8.7 thou/uL (4.8-10.8)
[2019-04-04 00:18] LABS: BHCG - Serum Negative (NEGATIVE); Pregs Control Background? CLEAR/WHITE (CLR/WHITE); Pregs Control Bar Appear? YES (CONTROL BAR)
[2019-04-04 00:38] LABS: ALT (SGPT) 31 U/L (8-55); AST (SGOT) 20 U/L (5-34); Albumin 3.7 g/dL (3.5-5.0); Alkaline Phosphatase 121 U/L (40-110); Anion Gap 13 mmol/L (10-20); BUN (Urea Nitrogen) 10 mg/dL (7.0-18.7); Bilirubin, Total 0.7 mg/dL (0.2-1.2); Calc. Creatinine Clearance 0 mL/min (70-130); Calcium 8.6 mg/dL (7.8-10.44); Carbon Dioxide 26 mmol/L (22-29); Chloride 107 mmol/L (98-107); Estimated GFR-MDRD 85; Glucose 144 mg/dL (70-105); Potassium 3.5 mmol/L (3.5-5.1); Protein, Total 6.7 g/dL (6.0-8.3); Sodium 142 mmol/L (136-145)
[2019-04-04 02:33] LABS: Hemoglobin 8.2 g/dL (12.0-16.0)
[2019-04-04 02:34] LABS: Bacteria/HPF None Seen HPF (None Seen); Bilirubin Negative (Negative); Blood, Urine 3+ (Negative); Clarity Clear (Clear); Glucose, Urine (Dipstick) Normal (Negative); Leukocyte 500 Leu/uL (Negative); Nitrite Negative (Negative); Protein, Urine (Dipstick) 20 mg/dL (Neg-Trace); RBC/HPF Greater than 50 HPF (0-3); Squamous Epithelial 0-3 HPF (0-3); Urobilinogen Normal mg/dL (Less than 2)
== END 2019-04-04 03:30 | disposition home or self-care (01) ==
LOC: ERS 23:35
DX: O72.2 Delayed and secondary postpartum hemorrhage (principal); O90.81 Anemia of the puerperium; Z79.891 Long term (current) use of opiate analgesic
CPT/HCPCS: 36415; 36416; 80053; 81003; 81015; 84703; 85025; 86850; 86900; 86901

== ENCOUNTER 2019-04-04 07:32 | Inpatient (IN) | payer OTHER ==
[2019-04-04 08:07] LABS: #Basophils 0.1 thou/uL (0.0-0.2); #Eosinphils 0.1 thou/uL (0.0-0.7); #Monocytes 0.4 thou/uL (0.11-0.59); #Neutrophils 8.1 thou/uL (1.40-6.50); %Basophils 0.6 % (0.0-1.0); %Eosinophils 0.6 % (0.0-10.0); %Lymphocytes 10.6 % (21.0-51.0); %Monocytes 4.5 % (0.0-10.0); %Neutrophils 83.7 % (42.0-75.0); Hemoglobin 8.5 g/dL (12.0-16.0); Mean Corpuscular HGB CONC 33.1 g/dL (32.0-36.0); Mean Corpuscular Hemoglobin 28.5 pg (27.0-31.0); Mean Corpuscular Volume 86.3 fL (78.0-98.0); Mean Platelet Volume 9.1 fL (7.4-10.4); Platelet Count 260 thou/uL (130-400); RBC Distribution Width 15.6 % (11.5-14.5); Red Blood Cell (RBC) Count 2.97 mill/uL (4.20-5.40); White Blood Cell (WBC) Count 9.7 thou/uL (4.8-10.8)
[2019-04-04 08:21] LABS: ALT (SGPT) 28 U/L (8-55); AST (SGOT) 17 U/L (5-34); Albumin 3.7 g/dL (3.5-5.0); Alkaline Phosphatase 117 U/L (40-110); Anion Gap 12 mmol/L (10-20); BUN (Urea Nitrogen) 7 mg/dL (7.0-18.7); Bilirubin, Total 0.8 mg/dL (0.2-1.2); Calc. Creatinine Clearance 0 mL/min (70-130); Calcium 8.2 mg/dL (7.8-10.44); Carbon Dioxide 22 mmol/L (22-29); Chloride 111 mmol/L (98-107); Estimated GFR-MDRD Greater than 90; Globulin 2.9 g/dL (2.4-3.5); Glucose 127 mg/dL (70-105); Potassium 3.9 mmol/L (3.5-5.1); Protein, Total 6.6 g/dL (6.0-8.3); Sodium 141 mmol/L (136-145)
[2019-04-04] MEDS ORDERED: PHENYLEPHRINE-NS 100 MCG/ML 10 ML SYRINGE ONE (09:37)
[2019-04-04] MEDS ORDERED: Glycopyrrolate 0.2 MG/ML 5 ML SYRINGE ONE (09:37)
[2019-04-04] MEDS ORDERED: Succinylcholine Chloride 20 MG/ML 10 ml SYRINGE FS ONE (09:37)
[2019-04-04] MEDS ORDERED: Dexamethasone 20 MG/5 ML VIAL ONE (09:37)
[2019-04-04] MEDS ORDERED: Lidocaine 1% PF 5 ML VIAL ONE (09:37)
[2019-04-04] MEDS ORDERED: Rocuronium Bromide 10 MG/ML (10ML VIAL) ONE (09:37)
[2019-04-04] MEDS ORDERED: PROPOFOL 200 MG/20 ML VIAL ONE (09:37)
[2019-04-04] MEDS ORDERED: Ondansetron PF 4 MG/2 ML Vial ONE ×2 (09:37→12:12)
[2019-04-04] MEDS ORDERED: hydrALAZINE 20 MG/ML VIAL SLOW IVP SCH (10:16)
[2019-04-04] MEDS ORDERED: Ondansetron PF 4 MG/2 ML Vial IVP PRN ×2 (10:16→17:41)
[2019-04-04] MEDS ORDERED: Estrogens, Conjugated 25 mg Vial SLOW IVP SCH (10:30)
[2019-04-04] MEDS ORDERED: Lactated Ringer's 1,000 ML IV SCH (10:30)
[2019-04-04] MEDS ORDERED: Acetaminophen/Codeine 30-300mg Tablet PO PRN (10:47)
[2019-04-04 11:22] LABS: Prothrombin Time 13.6 SEC (12.0-14.7)
--- NOTE | 2019-04-04 11:49 | ULT ---
PELVIC ULTRASOUND: Transabdominal and endovaginal ultrasound of pelvis performed. INDICATION: Vaginal bleeding post x 3 weeks. FINDINGS: Uterus is unremarkable. The endometrial stripe appears normal measured at 3 mm. No evidence of elvia ined products. There is a large complex cystic mass in the right adnexa measuring 6 x 7 x 12 cm. Internal echoes gomez ggest internal hemorrhage. The left ovary is not identified. No free fluid. IMPRESSION: 1. Uterus and endometrium appear unremarkable. 2. A large complex right adnexal cystic mass. Followup recommended. See recent CT POS: [facility]
--- NOTE | 2019-04-04 12:01 | CT ---
CT ABDOMEN AND PELVIS WITH IV CONTRAST: Date: 04/04/2019 INDICATION: Vaginal bleeding. Post . Patient diagnosed with retroperitoneal hematoma. Comparison made to CT abdomen and pelvis dated 04/02/2019. FINDINGS: Lung bases clear. Liver, spleen, and pancreas unremarkable. There is mild right hydronephrosis. The previously noted hematoma in the right pelvis appears to be o bstructing the distal right ureter. This right hydronephrosis is slightly more prominent today. The previously noted hematoma posterior to the uterus and to the right of midline is again seen. This is a complex mass which measures up to 8.0 cm AP dimension. Not significantly changed in size from 0 04/02/2019. However, on today's exam, there is enhancing vessel along the lateral inferior border of this hematom a extending to cervix. There is now active extravasation into what appears to be the vaginal vault wi th a large blood collection in the vaginal vault measuring up to 7.0 cm AP dimension. IMPRESSION: 1. The large heterogeneous hematoma in the pelvis posterior and to the right of the uterus is again seen. This mass is compressing the distal right ureter producing mild right hydronephrosis. 2. There is now active bleeding identified with a large blood collection within the vaginal vault me asuring up to 7.0 cm. Findings discussed with Dr. Reich at time of this dictation. CODE CR. POS: [facility]
[2019-04-04 12:36] LABS: #Basophils 0.1 thou/uL (0.0-0.2); #Lymphocytes 0.9 thou/uL (1.20-3.40); #Monocytes 0.4 thou/uL (0.11-0.59); #Neutrophils 4.2 thou/uL (1.40-6.50); %Basophils 1.4 % (0.0-1.0); %Eosinophils 0.5 % (0.0-10.0); %Lymphocytes 16.7 % (21.0-51.0); %Monocytes 6.2 % (0.0-10.0); %Neutrophils 75.2 % (42.0-75.0); Mean Corpuscular HGB CONC 32.6 g/dL (32.0-36.0); Mean Corpuscular Hemoglobin 28.6 pg (27.0-31.0); Mean Corpuscular Volume 87.7 fL (78.0-98.0); Mean Platelet Volume 9.6 fL (7.4-10.4); Platelet Count 253 thou/uL (130-400); RBC Distribution Width 15.6 % (11.5-14.5); Red Blood Cell (RBC) Count 2.08 mill/uL (4.20-5.40); White Blood Cell (WBC) Count 5.6 thou/uL (4.8-10.8)
[2019-04-04] MEDS ORDERED: Fentanyl 100 MCG/2 ML VIAL ONE ×3 (12:36→18:29)
[2019-04-04] MEDS ORDERED: Bupivacaine PF 0.5% 30 ML VIAL ONE (12:44)
[2019-04-04] MEDS ORDERED: Lidocaine 1% w/Epinephrine 1:100K 20 ML VIAL ONE (12:44)
[2019-04-04] MEDS ORDERED: Ketamine 50 MG/ML (10ML VIAL) ONE (12:52)
[2019-04-04] MEDS ORDERED: Iopamidol-370 76% 500 ML 1 ML ONE (13:18)
[2019-04-04] MEDS ORDERED: Albumin 5% 500 ML ONE (13:29)
[2019-04-04] MEDS ORDERED: Clindamycin/D5W 900 mg/50 ml Premix Bag ONE (13:32)
[2019-04-04] MEDS ORDERED: Norepinephrine 4 MG/4 ML VIAL ONE (13:37)
[2019-04-04] MEDS ORDERED: Phenylephrine HCL 10 MG/ML VIAL ONE (13:37)
--- NOTE | 2019-04-04 15:42 | RAD ---
EXAM: Single view of the abdomen HISTORY: Incorrect needle count COMPARISON: CT abdomen/pelvis 04/04/2019 FINDINGS: Single view of the abdomen shows a nonspecific, nonobstructive bowel gas pattern. Contrast is seen in the right ureter. No needles or instruments are seen within the abdomen. A Casillas catheter is seen in the urinary bladder. An NG tube is seen in the stomach. No suspicious calcificati ons are seen. The bones are unremarkable. IMPRESSION: No evidence of retained instruments or needles.
[2019-04-04] MEDS ORDERED: Levofloxacin 500 mg/D5W 100 ml Premix Bag ONE (15:59)
[2019-04-04] MEDS ORDERED: Midazolam HCl 2 mg/2 ml Vial ONE (16:18)
[2019-04-04] MEDS ORDERED: Promethazine HCl 25 MG/ML VIAL SLOW IVP PRN ×2 (16:53→17:34)
[2019-04-04] MEDS ORDERED: Promethazine HCl 25 MG/ML VIAL IM PRN ×3 (16:53→17:41)
[2019-04-04] MEDS ORDERED: PACU-Morphine 4MG/ML VIAL SLOW IVP PRN ×2 (16:53→17:34)
[2019-04-04] MEDS ORDERED: Morphine Sulfate 2 MG/ML SYRINGE SLOW IVP PRN ×2 (16:53→17:34)
[2019-04-04] MEDS ORDERED: HYDROmorphone 2 MG/ML VIAL SLOW IVP PRN ×2 (16:53→17:34)
[2019-04-04] MEDS ORDERED: Ondansetron HCl/PF 4 MG/2 ML Vial IVP PRN ×2 (16:53→17:34)
[2019-04-04] MEDS ORDERED: Bisacodyl 10 MG SUPP PR PRN (17:41)
[2019-04-04] MEDS ORDERED: hydrALAZINE 20 MG/ML VIAL SLOW IVP PRN (17:41)
[2019-04-04] MEDS ORDERED: diphenhydrAMINE 25 MG CAP PO PRN (17:41)
[2019-04-04] MEDS ORDERED: Lanolin Ointment 7 GM TUBE TOP PRN (17:41)
[2019-04-04] MEDS ORDERED: Zolpidem Tartrate 5 MG TAB PO PRN (17:41)
[2019-04-04] MEDS: Ketorolac Tromethamine 30 MG/ML VIAL IVP PRN (20:43)
[2019-04-04 21:35] LABS: Mean Corpuscular HGB CONC 34.3 g/dL (32.0-36.0); Mean Corpuscular Hemoglobin 30.1 pg (27.0-31.0); Mean Corpuscular Volume 87.7 fL (78.0-98.0); Mean Platelet Volume 9.6 fL (7.4-10.4); Platelet Count 109 thou/uL (130-400); RBC Distribution Width 14.1 % (11.5-14.5); Red Blood Cell (RBC) Count 3.65 mill/uL (4.20-5.40); White Blood Cell (WBC) Count 11.3 thou/uL (4.8-10.8)
[2019-04-04] MEDS: Docusate Calcium (SURFAK) 240 MG CAP PO SCH (22:40)
[2019-04-04] MEDS: HYDROcodone/Acetaminophen 5/325 mg Tablet PO PRN (22:40)
[2019-04-04] MEDS: Ferrous Sulfate 325 MG TAB PO SCH (22:41)
--- NOTE | 2019-04-04 23:38 | CON ---
DATE OF CONSULTATION: 04/04/2019 PRIMARY OB: Jonnathan Gandhi MD CHIEF COMPLAINT: Vaginal bleeding. HISTORY OF PRESENT ILLNESS: The patient is a 29-year-old G5, P3 female, who is 24 days out from a primary lower transverse section by Dr. Gandhi performed on 03/11/2019, re-presenting to the emergency room for intermittent severe vaginal bleeding. The patient was seen earlier in the emergency room this morning and was sent home with instructions to return should she experience bleeding again as it had seemed to have dissipated. She returned again with reports of filling her pad about every 5 minutes and she reports that last night when she came to the ER the first time that she had passed out at home. She reports dizziness and some lightheadedness. She reports feeling cold. She has had multiple presentations for the same problem since and has received multiple units of blood over that course of time. The patient denies any bleeding disorder. She denies fever. She denies nausea, vomiting, or foul discharge. She denies any similar complications of previous deliveries. Looking at her medical record, her hemoglobin was 9.5 at midnight, 8.2 around 2 o'clock this morning, 8.5 around 8 o'clock this morning. Previous CT scans have demonstrated a retroperitoneal hematoma that has been stable in size and not enlarging. PAST MEDICAL HISTORY: Obesity. PAST SURGICAL HISTORY: Previous . SOCIAL HISTORY: Denies drug, alcohol, or tobacco use. PHYSICAL EXAMINATION: VITAL SIGNS: On initial exam, blood pressure was 95/72, pulse of 98, respiratory rate of 18, saturating 100% on room air. GENERAL: She was alert, oriented, cooperative, and pleasant to interact with. HEAD: Normocephalic, atraumatic. LUNGS: Clear to auscultation bilaterally. HEART: Had a regular rhythm, was borderline tachycardic. ABDOMEN: Soft. Fundus is felt to be at the level of the umbilicus. EXTREMITIES: Nontender, nonedematous. VULVA: She had significant amount of bleeding in the vaginal vault with sterile speculum exam approximately 150 to 200 mL of blood. Upon visualization of the cervix, there is minimal active bleeding visible. LABORATORY DATA: Pelvic ultrasound showed the uterus and endometrium apparently unremarkable with what appeared to have a large right complex cystic mass in the right adnexa measuring 6 x [address] scan was performed and demonstrated this same mass, believed to be a retroperitoneal bleed from previous imaging, it was stable in size. However, she did report a separate collection in the vaginal vault measuring up to 7 cm with what appears to be active extravasation up to this point in time. Coagulation profile was ordered around 8 o'clock this morning and found to be INR of 1, PT of 13.6, fibrinogen of 489. ASSESSMENT AND PLAN: Plan was to place the patient on IV estrogen and continue pad counts as her uterus appeared to be normal and had a stable hematoma. However, being called back to the emergency room for persistent active bleeding and these new findings with CT scan with concerns for active bleeding from a vascular pedicle, decision was made to repeat a CBC and in preparation to go to the operating room, I called her primary provider, Dr. Gandhi, who had been aware of the patient's situation and with the updates, he agreed to leave clinic and come to the hospital for evaluation of the patient. In the meantime, the patient was consulted. Family was consulted and consents were obtained for hysteroscopy versus exploratory laparotomy versus diagnostic laparoscopy. We explained that we were not sure exactly where the source of this bleeding was coming from, that they could be from some sort of vascular malformation or a vascular pedicle that has been intermittently bleeding, but the purpose of the surgery was to identify what was occurring and an effort to stop the bleeding. We did discuss with the family the possibility of hysterectomy for definitive management should that be necessary. This discussion was primarily done with the as by this time the patient was noted to have blood pressures in the 60s over 40s, is being actively transfused. She did, however, communicate to me that she heard a conversation and agreed with moving forward and asked that her sign the consents. At this point in time, blood pressures again were noted to be 60s over 50s, pulse in the one teens. On exam, the patient had another 250 mL of blood expelled from the vaginal vault. The nursing staff had reported another large amount of blood had come out when she got up to go the bathroom with assistance and at that point in time, the patient had a syncopal episode. The patient was quickly seen by Anesthesia and taken to the operating room for further evaluation. By this time, Dr. Gandhi was present and took over the role of primary surgeon. For details concerning the operative procedure, please refer to his operative note. William ID: [id number]
[2019-04-05] MEDS: Ketorolac Tromethamine 30 MG/ML VIAL IVP PRN ×2 (03:50→12:46)
[2019-04-05 06:18] LABS: Hemoglobin 8.8 g/dL (12.0-16.0)
[2019-04-05] MEDS: Simethicone Chewable 80 MG TAB PO PRN ×2 (08:22→17:28)
[2019-04-05] MEDS: HYDROcodone/Acetaminophen 5/325 mg Tablet PO PRN ×4 (08:22→23:00)
[2019-04-05] MEDS: Ferrous Sulfate 325 MG TAB PO SCH ×2 (11:40→23:00)
[2019-04-05] MEDS: Docusate Calcium (SURFAK) 240 MG CAP PO SCH ×2 (11:41→23:00)
[2019-04-05 18:17] LABS: #Eosinphils 0.1 thou/uL (0.0-0.7); #Lymphocytes 1.8 thou/uL (1.20-3.40); #Neutrophils 8.6 thou/uL (1.40-6.50); %Basophils 0.2 % (0.0-1.0); %Eosinophils 0.6 % (0.0-10.0); %Lymphocytes 15.6 % (21.0-51.0); %Monocytes 8.3 % (0.0-10.0); %Neutrophils 75.3 % (42.0-75.0); Hemoglobin 9.8 g/dL (12.0-16.0); Mean Corpuscular Volume 88.4 fL (78.0-98.0); Mean Platelet Volume 9.9 fL (7.4-10.4); Platelet Count 132 thou/uL (130-400); RBC Distribution Width 14.7 % (11.5-14.5); Red Blood Cell (RBC) Count 3.26 mill/uL (4.20-5.40); White Blood Cell (WBC) Count 11.5 thou/uL (4.8-10.8)
[2019-04-05] MEDS ORDERED: Sodium Chloride 0.9% 10 ML ONE (21:36)
[2019-04-05] MEDS: Vancomycin HCl 1 GM in Premix Bag 1 BAG IVPB SCH (21:39)
[2019-04-05 21:41] LABS: Bacteria/HPF None Seen HPF (None Seen); Bilirubin Negative (Negative); Blood, Urine 3+ (Negative); Clarity Turbid (Clear); Glucose, Urine (Dipstick) Normal (Negative); Leukocyte 500 Leu/uL (Negative); Nitrite Negative (Negative); Protein, Urine (Dipstick) 30 mg/dL (Neg-Trace); RBC/HPF Greater than 50 HPF (0-3); Squamous Epithelial 0-3 HPF (0-3); Urobilinogen Normal mg/dL (Less than 2); WBC/HPF Greater than 50 HPF (0-3)
[2019-04-05 21:43] LABS: Urine Culture Reflex Yes Yes
--- NOTE | 2019-04-05 21:50 | PDOC.PP ---
Post Progress Note Post Day #: 25 Vital Signs (12 hours) Temp Pulse Resp BP BP Pulse Ox 04/05/19 19:50 96 04/05/19 19:47 102.4 F H 127 H 20 100/61 96 04/05/19 17:42 100.1 F H 112 H 20 116/71 97 04/05/19 11:43 98.5 F 100 20 103/63 - Physical Examination General: NAD Cardiovascular: no m/r/g Respiratory: clear to auscultation bilaterally Abdominal: + bowel sounds, lochia, no distention, appropriately TTP Extremities: negative homans (B) Skin: CS incision dry & intact Neurological: no gross focal deficits Psychiatric: A&Ox3, normal affect Result Diagrams: 04/05/19 18:05 04/04/19 07:57 Additional Labs: Post Labs Blood Type AB POSITIVE 04/04/19 07:57 - Assessment/Plan Today the patient is POD #1, s/p Exploratory Lap after ER admission for heavy vaginal bleeding. Patient has a known stable right retroperitoneal hematoma. Previous blood cultures negative, and no recent fever noted. This evening the patient began having a high grade fever of 102.4, HR of 127, RR 22, 97% O2 Sat, BP 100/61. My concern is that the patient is at increased risk of intra- abdominal infection and/or a septic hematoma. Yesterday, general surgery was called and the case discussed intra-operatively with , but due the retroperitoneal location of the hematoma, and the risk for further bleeding, and the difficulty in controlling any new bleeding encountered, he advised leaving it alone since it appeared to be stable now for several days. Tonight, I spoke with the powerhouse helper, as well with Dr. Monte (Critical Care ) and we have put together a detailed plan to transfer the patient to the CCU for aggressive IV Antibiotic therapy, and further monitoring for sepsis. Blood and urine cultures sent. CXR in am. Although this fever could be post transfusion in nature, respiratory, or related to poor right urine outflow, I believe the risk of sepsis warrants transfer to CCU. Assessment: 1. POD # 25 from primary 2. POD #1 exploratory lap/Cystoscopy, with opening and re-closure of uterine incision, and additional sutures to right uterine sight of bleeding. 3. Post-op fever on PPD #1 4. Stable acute blood loss anemia at this time 5. S/P 4u pRBC and 2u FFP yesterday 6. Intraoperative ABX yesterday were: Clindamysin 900mg/Levofloxacin 500mg 7. Known sub-acute right retroperitoneal hematoma Plan: 1. Transfer to CCU 2. Consult Dr. Monte with Critical Care 3. Start new Antibiotics: Miropenem and Vancomycin 4. Blood Culture x2 5. Urine Culture (catheter) 6. Portable CXR in am 7. CBC, CMP, PT/PTT/INR in am 8. Consider repeat CT Scan of Abdomen/Pelvis to re-evaluate hematoma in the next couple days. 9. Infectious Disease called - but apparently not available at this time.
[2019-04-05 22:04] VITALS: BMI 35.9
[2019-04-05] MEDS: Lactated Ringer's 1,000 ML IV SCH (22:46)
[2019-04-06] MEDS: MEROPENEM 1 GM/50 ML 1 GM in Premix Bag 1 BAG IVPB SCH ×4 (00:01→23:18)
[2019-04-06 03:50] LABS: #Basophils 0.1 thou/uL (0.0-0.2); #Eosinphils 0.1 thou/uL (0.0-0.7); #Lymphocytes 1.9 thou/uL (1.20-3.40); #Neutrophils 7.4 thou/uL (1.40-6.50); %Basophils 0.6 % (0.0-1.0); %Lymphocytes 18.3 % (21.0-51.0); %Monocytes 9.3 % (0.0-10.0); %Neutrophils 70.9 % (42.0-75.0); Hemoglobin 8.7 g/dL (12.0-16.0); Mean Corpuscular HGB CONC 32.6 g/dL (32.0-36.0); Mean Corpuscular Hemoglobin 29.5 pg (27.0-31.0); Mean Corpuscular Volume 90.3 fL (78.0-98.0); Mean Platelet Volume 9.7 fL (7.4-10.4); Platelet Count 132 thou/uL (130-400); RBC Distribution Width 14.6 % (11.5-14.5); Red Blood Cell (RBC) Count 2.96 mill/uL (4.20-5.40); White Blood Cell (WBC) Count 10.4 thou/uL (4.8-10.8)
[2019-04-06 03:54] LABS: INR-International Normal Ratio 1.3; PTT 45.8 SEC (22.9-36.1); Prothrombin Time 15.9 SEC (12.0-14.7)
[2019-04-06] MEDS: HYDROcodone/Acetaminophen 5/325 mg Tablet PO PRN ×3 (04:03→20:52)
[2019-04-06] MEDS: Simethicone Chewable 80 MG TAB PO PRN ×2 (04:04→20:51)
[2019-04-06] MEDS: Lactated Ringer's 1,000 ML IV SCH ×3 (04:05→21:04)
[2019-04-06 04:14] LABS: ALT (SGPT) 9 U/L (8-55); AST (SGOT) 10 U/L (5-34); Albumin 2.8 g/dL (3.5-5.0); Alkaline Phosphatase 69 U/L (40-110); Anion Gap 13 mmol/L (10-20); BUN (Urea Nitrogen) 7 mg/dL (7.0-18.7); Bilirubin, Total 1.4 mg/dL (0.2-1.2); Calc. Creatinine Clearance 182 mL/min (70-130); Calcium 7.3 mg/dL (7.8-10.44); Carbon Dioxide 21 mmol/L (22-29); Chloride 111 mmol/L (98-107); Estimated GFR-MDRD Greater than 90; Globulin 2.2 g/dL (2.4-3.5); Glucose 107 mg/dL (70-105); Potassium 3.4 mmol/L (3.5-5.1); Sodium 142 mmol/L (136-145)
[2019-04-06] MEDS: Ketorolac Tromethamine 30 MG/ML VIAL IVP PRN ×3 (08:08→23:17)
--- NOTE | 2019-04-06 08:30 | RAD ---
CHEST 1 VIEW: INDICATION: History of postoperative fever. COMPARISON: None. FINDINGS: Low lung volumes accentuate the heart size and pulmonary vasculature. No consolidation, pleural effu sumeet, or pneumothorax is evident. No acute osseous abnormality is evident. IMPRESSION: Low lung volumes. POS: [facility]
[2019-04-06] MEDS: Docusate Calcium (SURFAK) 240 MG CAP PO SCH ×2 (09:13→20:51)
[2019-04-06] MEDS: Ferrous Sulfate 325 MG TAB PO SCH ×2 (09:14→20:51)
[2019-04-06] MEDS: Vancomycin HCl 1 GM in Premix Bag 1 BAG IVPB SCH ×2 (09:15→21:05)
--- NOTE | 2019-04-06 12:46 | CON ---
DATE OF CONSULTATION: HISTORY OF PRESENT ILLNESS: Michael Neslon is a 29-year-old female, who is consulted by Dr. Jonnathan Gandhi, OB physician. The patient is a rather complicated medical history. She was readmitted to the hospital on 04/05 for abdominal pain, back pain. She has had a long history of significant vaginal bleeding post , but she denied any vomiting or fever or urinary complaints. She then has had extensive workup done. She has been in and out of the ER several times as per the information that I got from talking to Dr. Jonnathan Gandhi. She was placed on IV estrogen. She apparently was passing large clots vaginally, eventually was taken to Surgery as there was apparently a bleeding noticed at the area of the , which was controlled. Please review his extensive surgical note pre and postop. Yesterday, she was having fever up to 101.4. He was concerned she may have had postsurgery fever, intra-abdominal sepsis. She was transferred to the ICU. Additional information is that she underwent exploratory lap. All cultures were negative at the time of surgery. Intraoperatively consulted Dr. Lucio, who is a surgeon, due to a retroperitoneal location of hematoma, risk of further bleeding. Apparently, it was felt at this time not to address this issue. I was called eventually regarding her ongoing care and transferred to the ICU. We recommend starting broad-spectrum antibiotics until we assess the situation. This morning in the ICU, she is awake, alert, and responsive,no abdominal pain, she denies any coughing or wheezing. I spoke to her with the help of a sister who speaks Slovak. The patient does not speak any Slovak. PAST MEDICAL HISTORY: 1. Postop 25 days primary with exploratory laparotomy, opening and re-closure of uterine incision, sutures at the site of bleeding. 2. Significant blood loss requiring 4 units of packed cells using fresh frozen plasma yesterday, subacute right retroperitoneal hematoma, questionable about hydronephrosis. Otherwise, baseline past medical history, no history of diabetes or hypertension. PAST SURGICAL HISTORY: None. CHRONIC MEDICATIONS: None. ALLERGIES: APPARENTLY PENICILLIN. SOCIAL HISTORY: Tobacco and alcohol, none. REVIEW OF SYSTEMS: Otherwise 10-point negative. PHYSICAL EXAMINATION: VITAL SIGNS: Blood pressure 100/60 ,resp 16. pulse 78 , maximum temperature 99.2. GENERAL: Awake, alert, and responsive. CHEST: No wheezing or crackles. CARDIAC: Normal S1 and S2. No gallops. ABDOMEN: No masses. LABORATORY DATA: Her lytes are normal. Renal function is normal. Total bilirubin slightly elevated at 1.4, albumin is 2.8. White count 10,000, platelet count normal. Hemoglobin and hematocrit are stable. So far, all cultures are negative. ASSESSMENT: 1. Postop with significant vaginal bleeding requiring re-exploration, which has been stabilized. No evidence of DIC. 2. Fever, possibly postop versus intraoperative infection. PLAN: We will continue broad-spectrum antibiotics, meropenem and vancomycin. Repeat CT of the abdomen to assess the size of the retroperitoneal hemorrhage. Otherwise, supportive care, PT. This is a 45-minute critical time. Job ID: [id number] [facility]
--- NOTE | 2019-04-06 15:20 | PQF ---
CLINICAL DOCUMENTATION IMPROVEMENT CLARIFICATION FORM: ICD-10 Updated PLEASE DO AN ADDENDUM TO THE PROGRESS NOTE WITH ANY DOCUMENTATION UPDATES OR ADDITIONS AND CARRY THROUGH TO DC SUMMARY. THANK YOU. DATE: 04/06/19 ATTN: DR. FITZPATRICK Please exercise your independent, professional judgment in responding to the clarification form. Clinical indicators are provided on the bottom of this form for your review Please check appropriate box(s): [ ] Hypovolemic Shock [ ] Septic Shock [x ] Hemorrhagic Shock due to surgery: [ ] Shock Unspecified [ ] Other diagnosis [ ] Unable to determine In addition, please specify: Present on Admission (POA): [ ] Yes [x ] No [ ] Unable to determine For continuity of documentation, please document condition throughout progress notes and discharge summary. Thank You. CLINICAL INDICATORS - SIGNS / SYMPTOMS / LABS / RESULTS AND LOCATION IN MR ER NOTE: BP 80/64 PULSE 133 CONSULTATION NOTE 04/04: "PASSED OUT AT HOME...REPORTS DIZZINESS AND LIGHTHEADEDNESS. SHE REPORTS BEING COLD." HGN 04/04 @ MN: 9.5 HGN 04/04 @ 2AM: 8.2 RISKS: POD #25 FROM ( PROGRESS NOTE 04/05) ABL ANEMIA ( PROGRESS NOTE 04/05) TREATMENT: EXPLORATORY LAP/CYSTOSCOPY WITH OPENING AND RE-CLOSURE OF UTERINE INCISION AND ADDITIONAL SUTURES TO RIGHT UTERINE SIGHT OF BLEEDING ( PROGRESS NOTE 04/05) SERIAL LABS CRITICAL CARE MONITORING TRANSFUSION OF RBCS (04/04) TRANSFUSION OF FFP (04/04) IV FLUIDS (ER-PRESENT) (This form is maintained as a part of the permanent medical record) 2014 [employer], [email or web address] All Rights Reserved MARLENY [email or web address] Office: [phone] WANG
[2019-04-06] MEDS: Ibuprofen 800 MG TAB PO SCH (23:18)
[2019-04-07] MEDS: Lactated Ringer's 1,000 ML IV SCH (02:54)
[2019-04-07] MEDS: Ibuprofen 800 MG TAB PO SCH ×3 (06:37→20:37)
[2019-04-07] MEDS: MEROPENEM 1 GM/50 ML 1 GM in Premix Bag 1 BAG IVPB SCH ×3 (06:37→21:49)
[2019-04-07] MEDS: HYDROcodone/Acetaminophen 5/325 mg Tablet PO PRN ×3 (06:37→21:48)
[2019-04-07] MEDS: Ketorolac Tromethamine 30 MG/ML VIAL IVP PRN (06:38)
--- NOTE | 2019-04-07 08:12 | PRG ---
DATE OF SERVICE: 04/07/2019 SUBJECTIVE: This morning, she is awake, alert, and responsive. No pain. No shortness of breath. Still some minimal vaginal bleeding. OBJECTIVE: VITAL SIGNS: Pulse is 100, blood pressure is 120/70. Saturations are 98% on room air, respiratory rate 18. Her I's and O's have been consistently ahead. EXTREMITIES: Trace edema. CHEST: No wheezing, crackles. CARDIAC: Normal S1, S2. No gallops. ABDOMEN: No masses. ASSESSMENT AND PLAN: 1. Status post massive postoperative bleeding, stable. 2. Right temporal hematoma. 3. Fever, so far cultures are negative. I am discontinuing the vancomycin. We will continue meropenem for another 24 to 48 hours. Continue PT, supportive care. She needs DVT prophylaxis, if it is okay with surgery. No evidence of any active bleeding. She does have respiratory hematoma. We will follow. Job ID: [id number]
[2019-04-07 08:27] LABS: #Eosinphils 0.2 thou/uL (0.0-0.7); #Lymphocytes 1.3 thou/uL (1.20-3.40); #Monocytes 0.5 thou/uL (0.11-0.59); %Basophils 0.4 % (0.0-1.0); %Eosinophils 2.4 % (0.0-10.0); %Lymphocytes 14.2 % (21.0-51.0); %Monocytes 5.8 % (0.0-10.0); %Neutrophils 77.2 % (42.0-75.0); Hemoglobin 9.1 g/dL (12.0-16.0); Mean Corpuscular HGB CONC 32.1 g/dL (32.0-36.0); Mean Corpuscular Hemoglobin 29.4 pg (27.0-31.0); Mean Corpuscular Volume 91.7 fL (78.0-98.0); Mean Platelet Volume 8.8 fL (7.4-10.4); Platelet Count 166 thou/uL (130-400); RBC Distribution Width 14.5 % (11.5-14.5); Red Blood Cell (RBC) Count 3.08 mill/uL (4.20-5.40)
[2019-04-07] MEDS: Docusate Calcium (SURFAK) 240 MG CAP PO SCH ×2 (08:40→20:37)
[2019-04-07] MEDS: Ferrous Sulfate 325 MG TAB PO SCH ×2 (08:40→20:37)
[2019-04-07 08:41] LABS: ALT (SGPT) 10 U/L (8-55); AST (SGOT) 13 U/L (5-34); Albumin 2.9 g/dL (3.5-5.0); Alkaline Phosphatase 85 U/L (40-110); Anion Gap 11 mmol/L (10-20); BUN (Urea Nitrogen) 4 mg/dL (7.0-18.7); Bilirubin, Total 0.9 mg/dL (0.2-1.2); Calc. Creatinine Clearance 192 mL/min (70-130); Calcium 7.8 mg/dL (7.8-10.44); Carbon Dioxide 24 mmol/L (22-29); Chloride 110 mmol/L (98-107); Estimated GFR-MDRD Greater than 90; Globulin 2.7 g/dL (2.4-3.5); Glucose 106 mg/dL (70-105); Potassium 3.5 mmol/L (3.5-5.1); Protein, Total 5.6 g/dL (6.0-8.3); Sodium 141 mmol/L (136-145)
--- NOTE | 2019-04-07 18:45 | PDOC.PP ---
Post Progress Note PO intake tolerated: yes Flatus: yes Ambulation: yes Vital Signs (12 hours) Temp Pulse Pulse Pulse Resp BP BP 04/07/19 17:25 99.9 F H 107 H 20 04/07/19 14:00 98.9 F 04/07/19 11:00 98.8 F 04/07/19 10:26 74 91 124/89 114/75 04/07/19 07:52 04/07/19 07:00 98.8 F BP Pulse Ox Pulse Ox Pulse Ox 04/07/19 17:25 120/70 97 04/07/19 14:00 04/07/19 11:00 04/07/19 10:26 100 98 04/07/19 07:52 93 L 04/07/19 07:00 Weight Weight 190 lb Most Recent Monitor Data Heart Rate from ECG 117 NIBP 117/69 NIBP BP-Mean 85 Respiration from ECG 29 SpO2 98 - Physical Examination General: NAD Cardiovascular: no m/r/g, RRR Respiratory: clear to auscultation bilaterally Abdominal: + bowel sounds, lochia, no distention, appropriately TTP Extremities: negative homans (B) Skin: CS incision dry & intact, no rash Neurological: no gross focal deficits Psychiatric: A&Ox3, normal affect Result Diagrams: 04/07/19 08:14 04/07/19 08:14 Additional Labs: Post Labs Blood Type AB POSITIVE 04/04/19 07:57 - Assessment/Plan Today the patient is POD #2, s/p Exploratory Lap after ER admission for heavy vaginal bleeding. Assessment: 1. POD # 26 from primary 2. POD #2 exploratory lap/Cystoscopy, with opening and re-closure of uterine incision, and additional sutures to right uterine sight of bleeding. 3. Post-op fever on PPD #1 - now WNL 4. Stable acute blood loss anemia at this time 5. Known sub-acute right retroperitoneal hematoma Plan: 1. Patient now in CCU and Dr. Monte with Critical Care consulted and assisting 2. Continue Miropenem and Vancomycin 3. Blood Culture x2 neg prelim 4. Continue CCU care for now.
--- NOTE | 2019-04-07 18:48 | PDOC.PP ---
Post Progress Note Post Day #: 27 PO intake tolerated: yes Flatus: yes Ambulation: yes Vital Signs (12 hours) Temp Pulse Pulse Pulse Resp BP BP 04/07/19 17:25 99.9 F H 107 H 20 04/07/19 14:00 98.9 F 04/07/19 11:00 98.8 F 04/07/19 10:26 74 91 124/89 114/75 04/07/19 07:52 04/07/19 07:00 98.8 F BP Pulse Ox Pulse Ox Pulse Ox 04/07/19 17:25 120/70 97 04/07/19 14:00 04/07/19 11:00 04/07/19 10:26 100 98 04/07/19 07:52 93 L 04/07/19 07:00 Weight Weight 190 lb Most Recent Monitor Data Heart Rate from ECG 117 NIBP 117/69 NIBP BP-Mean 85 Respiration from ECG 29 SpO2 98 - Physical Examination General: NAD Cardiovascular: no m/r/g, RRR Respiratory: clear to auscultation bilaterally, non-labored breathing Abdominal: + bowel sounds, lochia, no distention, appropriately TTP Extremities: negative homans (B) Skin: CS incision dry & intact, no rash Neurological: no gross focal deficits Psychiatric: A&Ox3, normal affect Result Diagrams: 04/07/19 08:14 04/07/19 08:14 Additional Labs: Post Labs Blood Type AB POSITIVE 04/04/19 07:57 - Assessment/Plan Today the patient is POD #3, s/p Exploratory Lap after ER admission for heavy vaginal bleeding. Assessment: 1. POD # 27 from primary 2. POD #3 exploratory lap/Cystoscopy, with opening and re-closure of uterine incision, and additional sutures to right uterine sight of bleeding. 3. Post-op fever on PPD #1 - now WNL x almost 48 hours. 4. Stable acute blood loss anemia at this time 5. Known sub-acute right retroperitoneal hematoma Plan: 1. Patient now in CCU and Dr. Monte with Critical Care consulted and assisting 2. Continue Miropenem and Vancomycin has been DC'ed 3. Blood Culture x2 neg prelim 4. Transfer back to post- floor today.
[2019-04-07] MEDS ORDERED: Milk Of Magnesia 30 ML UDCUP PO PRN (20:01)
[2019-04-07] MEDS: Simethicone Chewable 80 MG TAB PO PRN (20:37)
[2019-04-08] MEDS: Ibuprofen 800 MG TAB PO SCH ×3 (05:20→21:31)
[2019-04-08] MEDS: MEROPENEM 1 GM/50 ML 1 GM in Premix Bag 1 BAG IVPB SCH ×3 (05:21→21:31)
--- NOTE | 2019-04-08 09:14 | PRG ---
DATE OF SERVICE: 04/08/2019 SUBJECTIVE: This morning, she is awake, alert, and responsive. OBJECTIVE: VITAL SIGNS: Temperature 98, pulse 75, respirations 16, blood pressure 120/77. GENERAL: She tells us she is still having some vaginal bleeding, but no shortness of breath. CHEST: Decreased breath sounds, no wheezing. CARDIAC: Normal S1, S2. No gallops. ABDOMEN: No masses. LABORATORY DATA: Unremarkable. Thyroid function was normal. All cultures negative. IMPRESSION: 1. Status post postop bleeding. 2. Retroperitoneal hemorrhage. 3. Fever, resolved. This may be postop rather than infection. I may discontinue the meropenem today, continue observation, and she may need a followup CT of the abdomen to assess retroperitoneal hemorrhage. I will leave this up to her primary care surgeon. Pulmonary/Critical Care will follow at a distance. Please call if needed. Job ID: [id number]
[2019-04-08] MEDS: Ferrous Sulfate 325 MG TAB PO SCH ×2 (09:46→21:31)
[2019-04-08] MEDS: Docusate Calcium (SURFAK) 240 MG CAP PO SCH ×2 (09:46→21:31)
[2019-04-08] MEDS: HYDROcodone/Acetaminophen 5/325 mg Tablet PO PRN ×2 (09:51→17:47)
[2019-04-08] MEDS ORDERED: Sodium Chloride 0.9% 10 ML ONE (14:27)
--- NOTE | 2019-04-08 19:44 | PDOC.PP ---
Post Progress Note Post Day #: 4 PO intake tolerated: yes Flatus: yes Ambulation: yes Vital Signs (12 hours) Temp Pulse Resp BP Pulse Ox 04/08/19 17:07 99.4 F 90 16 127/78 97 Weight Weight 190 lb Most Recent Monitor Data Heart Rate from ECG 117 NIBP 117/69 NIBP BP-Mean 85 Respiration from ECG 29 SpO2 98 - Physical Examination General: NAD Cardiovascular: no m/r/g, RRR Respiratory: clear to auscultation bilaterally, non-labored breathing Abdominal: + bowel sounds, lochia, no distention, appropriately TTP Extremities: negative homans (B) Result Diagrams: 04/07/19 08:14 04/07/19 08:14 Additional Labs: Post Labs Blood Type AB POSITIVE 04/04/19 07:57 - Assessment/Plan Today the patient is POD #3, s/p Exploratory Lap after ER admission for heavy vaginal bleeding. Assessment: 1. POD # 28 from primary 2. POD #4 exploratory lap/Cystoscopy, with opening and re-closure of uterine incision, and additional sutures to right uterine sight of bleeding. 3. Post-op fever on PPD #1 - no temp >100.0 x almost 72 hours. 4. Stable acute blood loss anemia at this time 5. Known sub-acute right retroperitoneal hematoma Plan: 1. Patient back on the post- floor x 24 hours, doing well. Dr. Monte with Critical Care consulted and assisting 2. Continue Miropenem (Vancomycin has been DC'ed) 3. Blood Culture x2 neg 4. Discharge planning to be addressed tomorrow.
[2019-04-09 06:11] LABS: #Basophils 0.1 thou/uL (0.0-0.2); #Eosinphils 0.3 thou/uL (0.0-0.7); #Lymphocytes 1.4 thou/uL (1.20-3.40); #Monocytes 0.5 thou/uL (0.11-0.59); #Neutrophils 4.1 thou/uL (1.40-6.50); %Basophils 1.1 % (0.0-1.0); %Eosinophils 4.5 % (0.0-10.0); %Monocytes 7.5 % (0.0-10.0); %Neutrophils 64.9 % (42.0-75.0); Hemoglobin 7.7 g/dL (12.0-16.0); Mean Corpuscular Hemoglobin 29.4 pg (27.0-31.0); Mean Corpuscular Volume 91.6 fL (78.0-98.0); Platelet Count 239 thou/uL (130-400); Red Blood Cell (RBC) Count 2.61 mill/uL (4.20-5.40); White Blood Cell (WBC) Count 6.2 thou/uL (4.8-10.8)
[2019-04-09] MEDS: Ibuprofen 800 MG TAB PO SCH ×3 (06:12→23:24)
[2019-04-09] MEDS: MEROPENEM 1 GM/50 ML 1 GM in Premix Bag 1 BAG IVPB SCH ×3 (06:12→23:24)
[2019-04-09] MEDS: Ferrous Sulfate 325 MG TAB PO SCH ×2 (07:37→23:24)
[2019-04-09] MEDS: Docusate Calcium (SURFAK) 240 MG CAP PO SCH ×2 (07:37→23:25)
[2019-04-09] MEDS: HYDROcodone/Acetaminophen 5/325 mg Tablet PO PRN (07:38)
[2019-04-09] MEDS ORDERED: Acetaminophen 500 MG TAB PO SCH (10:00)
[2019-04-09] MEDS ORDERED: diphenhydrAMINE 25 MG CAP PO SCH (10:00)
[2019-04-09] MEDS ORDERED: Sodium Chloride 0.9% 20 ML ONE (10:14)
[2019-04-10 01:30] LABS: Hemoglobin 9.7 g/dL (12.0-16.0)
[2019-04-10 06:45] LABS: Hemoglobin 9.9 g/dL (12.0-16.0)
[2019-04-10] MEDS: Ibuprofen 800 MG TAB PO SCH ×3 (06:48→21:16)
[2019-04-10] MEDS: MEROPENEM 1 GM/50 ML 1 GM in Premix Bag 1 BAG IVPB SCH ×3 (06:48→21:16)
[2019-04-10] MEDS: Docusate Calcium (SURFAK) 240 MG CAP PO SCH ×2 (09:43→21:16)
[2019-04-10] MEDS: Ferrous Sulfate 325 MG TAB PO SCH ×2 (09:43→21:16)
[2019-04-10] MEDS ORDERED: Sodium Chloride 0.9% 10 ML ONE (13:59)
[2019-04-11] MEDS: Ibuprofen 800 MG TAB PO SCH ×2 (05:36→14:28)
[2019-04-11] MEDS ORDERED: Sodium Chloride 0.9% 10 ML ONE (08:54)
[2019-04-11] MEDS: Ferrous Sulfate 325 MG TAB PO SCH (08:56)
[2019-04-11] MEDS: Docusate Calcium (SURFAK) 240 MG CAP PO SCH (08:56)
[2019-04-11] MEDS: HYDROcodone/Acetaminophen 5/325 mg Tablet PO PRN (08:57)
[2019-04-11] MEDS ORDERED: Iopamidol 370 76% 100 ML VIAL ONE (14:24)
--- NOTE | 2019-04-11 14:47 | CT ---
CT ABDOMEN AND PELVIS WITH IV CONTRAST 04/11/2019 CLINICAL INFORMATION: Follow-up retroperitoneal hematoma. COMPARISON: 04/04/2019 Technique: Multiple contiguous axial CT images are obtained through the abdomen and pelvis with IV contrast. Cor onal reformatted images are provided. FINDINGS: Lower Chest: There is trace left pleural effusion. Vessels: Abdominal aorta is normal in caliber without evidence of an aortic dissection Abdomen: Portal vein:Patent Gallbladder: Within normal limits for CT imaging. Liver: There is slight nonspecific heterogeneity involving the inferior aspect right hepatic lobe. Li dae otherwise has a normal CT appearance. Spleen: within normal limits. Pancreas: within normal limits. Adrenals: within normal limits. Kidneys: within normal limits. Bowel: Fluid-filled loops of bowel are seen within the central abdomen with just a mild thickening of the ramey of these loops of fluid-filled bowel. This is overall nonspecific. Findings could be related to enteritis. There are no findings to suggest a bowel obstruction. Appendix: The appendix is visualized and normal in caliber. Peritoneum/retroperitoneum: Previously noted heterogeneous fluid collection likely related to residua l hematoma within the central pelvis just to the right of the uterus is again seen. This presumed hematoma measures 9.5 cm craniocaudal x6.9 cm AP x7.6 cm transverse, and this collection previously m easured 10 cm craniocaudal x8 cm AP x7.5 cm transverse. Previously noted areas of extravasation of contrast suggesting active bleeding on the prior study within the region of the vagina is no longer v isualized, and the heterogeneous fluid/hemorrhage within the vagina is no longer seen. However, there are is a small amount of fluid and gas seen in this region measuring 2.6 cm x 1.5 cm. There has been interval development of an irregular hypodense fluid collection within the anterior pe lvis just superior to the level of the urinary bladder which measures 5.1 cm x 4 cm. A very small collection just to the right in this region is also seen measuring 2.1 cm findings may be related to small areas of hemorrhage secondary to recent postsurgical change. No gas is seen within these collections to definitely suggest infection/abscess. There is mild heterogeneity seen in the region of the endometrial canal. Abdominal Wall: There is mild subcutaneous edema present greatest in a periumbilical location. A smal l periumbilical hernia is identified. Punctate focus of gas is seen within the anterior abdominal wall just inferior to the right of the umbilicus with additional punctate focus of gas in in the ante rior pelvis which may also be in the region of the wall of the lower pelvis at site of prior surgery. Pelvis: Reproductive Organs: As described above. Pelvis: Tiny amount of free fluid is seen in the cul-de-sac. Bladder: Mostly decompressed. Bones: Unchanged IMPRESSION: 1. Slightly smaller size of circumscribed hematoma within the central pelvis. 2. Punctate foci of gas in the anterior abdominal wall of the pelvis likely due to recent postsurgica l change. These foci of gas are at level of surgery. 3. Newly developed small fluid collections within the anterior pelvis which could be related to posto perative changes and possibly small areas of hemorrhage. No gas is seen within these collections to suggest infection at this time. 4. Interval evacuation of the heterogeneous fluid/hemorrhage within the region of the lower uterine s egment and in the region of the vaginal vault with only tiny amount of fluid and gas present within the vaginal vault on today's exam. 5. Slightly thickened fluid-filled filled loops of bowel in the central pelvis which could be related to enteritis or possibly inflammatory due to recent surgery. There is no bowel obstruction seen.
[2019-04-11 17:45] VITALS: BP 110/64; TEMP 98.4
--- NOTE | 2019-04-12 12:16 | OP ---
DATE OF PROCEDURE: 04/04/2019 SURGEON: Jonnathan Gandhi MD DIRECTOR OF STRATEGIC MARKETING: Kehinde Mendoza MD PREOPERATIVE DIAGNOSIS: 1. Severe vaginal bleeding causing anemia and syncopal episode in the emergency room, 3 1/2 weeks s/p uncomplicated primary . POSTOPERATIVE DIAGNOSES: 1. Severe vaginal bleeding causing anemia and syncopal episode in the emergency room, 3 1/2 weeks s/p uncomplicated primary . 2. Acute bleeding noted on the right lateral portion of the uterus likely involving an upper branch of the right uterine artery. PROCEDURES PERFORMED: 1. Exploratory laparotomy with opening of the previous uterine incision 2. Ligation of compromised right uterine vasculature and closure of uterine incision 3. Cystoscopy confirming patent ureteral outflow from both ureters. ESTIMATED BLOOD LOSS: Estimated 1200ml lost in the OR, 1000ml prior to the start of the case in the OR, 200ml during laparotomy. See Anesthesia report for Blood Loss, Urine Output, and Blood Products/Fluids given. The patient received 4 units of packed red blood cells and 2 units of fresh frozen plasma intraoperatively. My estimate of new vaginal bleeding in the OR prior to opening of the abdomen was an additional 1000 mL since leaving the emergency room. SURGICAL COMPLICATIONS: None. DETAILS OF THE PROCEDURE: Ms. Nelson, now approximately 3-1/2 weeks status- post an uneventful primary section without complications for the first 2 weeks. She then began having difficulties with heavy vaginal bleeding. After already being over 2 weeks post- from , she was found to have a stable right retroperitoneal hematoma on CT Scan, and anemia, and was admitted and given 3u pRBC transfusion. Repeat CT imaging was stable, and she left home with scant vaginal bleeding that admission in stable condition. The morning of surgery, she represented to the [facility] Emergency Department complaining of even heavier vaginal bleeding. On that day, she was initially seen by the emergency room team and then the [facility] hospitalist team was called and consulted. I learned of this patient's condition from Dr. Kehinde Mendoza, who was the first to respond on that day. The patient had already began a blood transfusion at that time, and I was notified of a syncopal episode that occurred in the bathroom after she became dizzy while standing. No injuries were reported from that incident to me. When I arrived, I met with Dr. Mendoza in the emergency room, where together we quickly reassessed the patient who had continued to bleed heavily from the vagina, and we made immediate plans to take her back for surgery. Our initial plan was to attempt a more conservative hysteroscopy and D and C before further consideration of reopening the abdomen. The patient was taken back to the surgical suite, where she received general anesthesia and was prepped and draped in the normal sterile fashion, and initially, she was put in Aubrey stirrups. At that time, with the patient's legs , it became obvious that she was having even more severe vaginal bleeding than initially noted, and my quick guess was that 1000 mL of blood and blood clot was now present between her legs on the Chux pad. In my mind, the bleeding had become too heavy to attempt meaningful exam or hysteroscopy surgery from below, and we abandoned the idea of hysteroscopy for now. I instructed the OR team to instead place the patient in a dorsal supine position and re-prep her for exploratory laparotomy. During this time, Anesthesia was ordering blood products and making us aware that her blood pressures had reached levels of approximately 80/30 and that they were having to work fairly hard to keep her blood pressure stable. In my mind, further attempts to do surgery from below would have likely been met with failure and delayed our ability to stop any internal bleeding around the area of the uterus. We were fully prepared to proceed with hysterectomy, if bleeding could not be controlled in any other way. At this point, we asked for a Bookwalter set and proceeded with laparotomy. Dr. Mendoza was again able to join me and assist me at this time. A scalpel was used through the old scar that appeared very well healed , and that incision was carried down to the underlying rectus fascia. The fascia was incised in the midline and the fascial incision extended in both lateral directions using sharp dissection technique. The rectus muscles were then in their midline and the peritoneum identified and entered in a blunt fashion using fingertip. The peritoneal incision was then extended using a blunt dissection technique. At this point, the bowel was packed back with two moist laparotomy sponges and the Bookwalter retractor was put in place using 4 blades in a semi-loose fashion in order to avoid any potential nerve injuries to the underlying psoas muscle region. A small amount of blood was noted inside the abdominal cavity, but not nearly enough to explain the patient's symptoms. I would estimate we encountered 25 mL of blood superficially in the region of the right broad ligament and the uterine incision. We also noted that the right retroperitoneal hematoma noted on CT scan was present and appeared to be rather old (by color) and stable. We then attempted to re- evaluate the patient's uterine closure and better evaluate the source of bleeding for the next several minutes. The uterine closure of #1 Monocryl running-locking stitches was already partially dissolved and broken down into several pieces that were removed with gentle traction only, and did not require scissors to remove. We removed the Monocryl in its entirety along the uterine incision, opening up the uterus again, which allowed for better exploration. It became obvious to us that there was bleeding coming from the inside right portion of the uterus, which was causing relatively heavy vaginal outflow of blood. We could blot this region with a sponge stick and watch it pool up quickly before our eyes. This bleeding wasn 't right at the uterine incision, but somewhat more later and posterior to the uterine closure. At any rate, the location of bleeding seemed rather atypical for sequelae. At this point, we placed several carefully placed figure -of-eight stitches using #1 chromic in the areas where bleeding was noted. Approximately 3 or 4 of these sutures were used in [id number] fashion, which dramatically reduced bleeding almost immediately. We believe these sutures ligated a branch of the right uterine artery running superiorly along the lateral side of the uterus. Of note, the original quantitative blood loss was noted to be less than 300 mL, and no such injuries or vascular repairs were noted at the time of that . At this point, we re-examined the patient for any further bleeding and had a nurse check below the drapes and no further bleeding was noted vaginally at this point. A clean Chux pad was placed under the patient. Once we were satisfied that the inside of the uterus appeared to be hemostatic, we proceeded with closure of the uterine incision using careful [id number] sutures of #1 chromic. This involved some dissection of the bladder inferiorly in order to be able to incorporate good muscle tissue into the closure. Once the uterus was completely closed, a small amount of oozing was still noted from the uterine closure, and we used Floseal and secondarily, Refined Potato Starch Powder at the uterine incision to obtain hemostasis. Next, I instructed the snuff drier to please call the Doctor on-call for General Surgery, to discuss the retroperitoneal hematoma, and whether general surgery wanted to re-evaluated it during this surgery - since the patient was open on the table. Although it appeared stable, I had my own concern for possible infection in this area in the post-operative period, particularly since the patient was re-opened. I spoke with Dr. Khadijah MD, and briefed him on the patient and her situation personally with the OR phone held up to my ear. His advice was to leave the hematoma alone, as it was stable, and the last thing we needed was to encounter new bleeding in an area that was difficult to access and control the bleeding. He did not feel there was a need for him to scrub in. We watched the patient for several more minutes to assure no further bleeding was occurring and checked between the legs one more time for any further bleeding. Vaginal bleeding appeared to have completely stopped at this point. We also checked the abdomen and pelvis for sponges, instruments, and needles - and none were found. We called for an X-ray of abdomen and pelvis, as initial counts were unreliable with multiple instrument sets opened simultaneously. While waiting for the X-ray team, the Fascia was closed with #1 Vicryl suture in a running fashion. Final closure was deferred until Radiology called into the room to report a negative x-ray. Skin was then closed with tyrese and a pressure dressing placed. The patient was then repositioned into Aubrey stirrups, and no vaginal bleeding was again noted. Casillas catheter was removed, and attention turned to cystoscopy that was performed with normal saline and with a 30 degree scope. Both left and right ureteral meatus were identified, and both were seen extruding urine multiple times in a normal fashion. I was satisfied that no ureteral injuries had occurred during repair of the uterus. A clean Casillas catheter was replaced. The patient was than repositioned into a dorsal supine position, extubated, and transferred to an ambulatory bed. She was taken to recovery in stable condition, where I again checked on her and reassessed her condition with anesthesia. Orders were submitted to transfer her back to the [facility] floor once stable. Job ID: [id number] [facility]
--- NOTE | 2019-04-13 05:16 | PQF ---
RADHA WELSH DAVID MD [id number] CLINICAL DOCUMENTATION CLARIFICATION FORM: POST DISCHARGE Addendum to original discharge summary date: ____ Late entry note date: __ DATE:04/13/2019 ATTN: Jonnathan Shay Please exercise your independent, professional judgment in responding to the clarification form. Clinical indicators are provided on the bottom of this form for your review Please check appropriate box(s): [ ] Uterine bleeding is a postoperative complication related to section and not related to period [ ] Uterine bleeding is bleeding not related to section [ ] Other diagnosis [ ] Unable to determine In addition, please specify: Present on Admission (POA): [ ] Yes [ ] No [ ] Unable to determine CLINICAL INDICATORS - SIGNS / SYMPTOMS / LABS OB consult p1 04/04 Dr Mendoza re-presenting to the ER for intermittent severe vaginal bleeding OB consult p1 04/04 Dr Mendoza report dizziness and some lightheadedness. He reports feeling cold. She has had multiple presentations for the same problem since and has received multiple units of blood over that course of time OB consult p1 04/[address] Previous CT scans have demonstrated a retroperitoneal hematoma that has been stable in size Operative report p1 04/04 Dr Gandhi This bleeding wasn't right at the uterine incision, but somewhat more later and posterior to the uterine closure. At any, rate the location of bleeding seemed rather atypical for sequela RISK FACTORS OB consult p1 04/04 24 days out from primary LTCS performed on 03/11/2019 PN p2 04/05 Uterine sight of bleeding PN p2 04/05 sub acute right retroperitoneal hematoma TREATMENT: OB consult 04/04 Danny Zaldivar Blood bank 04/04 RBC infused Blood bank 04/04 FFP infused Operative report p1 04/04 Ligation of compromised right uterine vasculature and closure of uterine incision (This form is maintained as a part of the permanent medical record) 2014 [employer] All Rights Reserved [email or web address]
== END 2019-04-11 19:45 | disposition home or self-care (01) | DRG 769 ==
LOC: ERS 07:32 → 3SW 19:05 → CCU 04-05 22:46 → 3SW 04-07 17:54
PROVIDERS: ADMIT Obstetrics & Gynecology; ATTEND Obstetrics & Gynecology
PROC: 0W3R0ZZ Control Bleeding in Genitourinary Tract, Open Approach (ICD-10-PCS; principal; 2019-04-04)
PROC: 0TJB8ZZ Inspection of Bladder, Via Natural or Artificial Opening Endoscopic (ICD-10-PCS; 2019-04-04)
PROC: 30233L1 Transfusion of Nonautologous Fresh Plasma into Peripheral Vein, Percutaneous Approach (ICD-10-PCS; 2019-04-04)
PROC: 30233P1 Transfusion of Nonautologous Frozen Red Cells into Peripheral Vein, Percutaneous Approach (ICD-10-PCS; 2019-04-04)
PROC: 30233K1 Transfusion of Nonautologous Frozen Plasma into Peripheral Vein, Percutaneous Approach (ICD-10-PCS; 2019-04-04)
DX: O72.2 Delayed and secondary postpartum hemorrhage (principal); T81.19XA Other postprocedural shock, initial encounter; K66.1 Hemoperitoneum; D62 Acute posthemorrhagic anemia; O90.81 Anemia of the puerperium; O99.215 Obesity complicating the puerperium; E66.9 Obesity, unspecified; Y83.8 Other surgical procedures as the cause of abnormal reaction of the patient, or of later complication, without mention of misadventure at the time of the procedure; R50.82 Postprocedural fever; Z88.0 Allergy status to penicillin; Z79.899 Other long term (current) drug therapy
CPT/HCPCS: 36415; 36416; 36430; 71045; 74018; 74177; 76856; 80053; 80202; 81001; 81003; 81015; 84443; 84703; 85014; 85018; 85025; 85384; 85610; 85730; 86850; 86900; 86901; 87040; 87086; 93005; 96374; 99284; J1100; J1410; J1885; J1956; J2001; J2185; J2250; J2370; J2405; J2704; J3010; J3370; J3490; P9016; P9045; P9059; Q0163; Q9967; S0020

== ENCOUNTER 2019-04-29 13:21 | Emergency (ER) | payer OTHER | END 2019-04-29 14:52 | disposition home or self-care (01) | LOC: ERS 13:21 | DX: O90.0 Disruption of cesarean delivery wound (principal); D64.9 Anemia, unspecified | CPT/HCPCS: 12020 ==

== ENCOUNTER 2019-05-11 15:21 | Emergency (ER) | payer OTHER | END 2019-05-11 16:41 | disposition home or self-care (01) | LOC: ERS 15:21 | DX: O90.0 Disruption of cesarean delivery wound (principal); D64.9 Anemia, unspecified | CPT/HCPCS: 99283 ==